=== PATIENT | male | born 1955 | race Two or more races ===

== ENCOUNTER 2016-07-07 18:55 | Inpatient (IN) | payer MEDICAID, OTHER ==
[~2016-07-07] VITALS: Ht 177.8 cm; Wt 62.5 kg
[2016-07-07] MEDS ORDERED: SODIUM CHLORIDE 0.9% 1,000 ML IV ONE ×2 (19:29→21:00)
[2016-07-07] MEDS ORDERED: IPRATROPIUM BROM 0.5 MG/2.5ML INH SOL NEB ONE (19:30)
[2016-07-07] MEDS ORDERED: ALBUTEROL SULF 2.5 MG/0.5ML(0.5%) NEB SOLN NEB ONE (19:30)
[2016-07-07 20:08] LABS: Hematocrit 46.7 % (41.0-53.0); Mean Corpuscular Hemoglobin 30.3 pg (28.0-32.0); Mean Corpuscular Hgb Conc. 32.1 g/dL (32.0-36.0); Mean Corpuscular Volume 94.3 fL (80.0-100.0); Mean Platelet Volume 11.3 fL (7.4-10.4); Platelet Count (auto) 354 10^3/uL (140-450); SUSPECT VIEW TRANSMISSION
[2016-07-07 20:12] LABS: Albumin 2.3 g/dL (3.4-5.0); BUN/Creatinine Ratio 26.1; Calcium 8.8 mg/dL (8.5-10.1); Magnesium 1.9 mg/dL (1.6-2.6); Potassium 3.9 mmol/L (3.5-5.1)
[2016-07-07 20:14] LABS: Bilirubin, Total 0.7 mg/dL (0.2-1.0); Metamyelocytes % 0; Myelocytes % 0; Promyelocytes % 0; Reactive Lymphocytes 0; Total Protein 7.4 g/dL (6.4-8.2)
[2016-07-07] MEDS ORDERED: AZITHROMYCIN 250 MG TAB PO ONE (20:30)
[2016-07-07] MEDS ORDERED: cefTRIAXone 1GM/50ML D5W 50 ML IV ONE (20:30)
[2016-07-07 20:35] LABS: Urine Bilirubin Negative (Negative); Urine Blood 2+ /uL (Negative); Urine Color Yellow (Yellow); Urine Glucose 4+ mg/dL (Normal); Urine Granular Cast FEW /lpf (0); Urine Ketone 4+ (Negative); Urine Mucus FEW (None Seen); Urine Nitrite Negative (Negative); Urine RBC 4 /hpf (0 - 3); Urine Urobilinogen Normal (Negative)
[2016-07-07] MEDS ORDERED: PANTOPRAZOLE SODIUM 40 MG/10 ML VIAL IV ONE (20:45)
[2016-07-07] MEDS ORDERED: methylPREDNISolone SOD SUCC 125 MG/2 ML VL IV ONE (20:45)
[2016-07-07] MEDS ORDERED: DEXTROSE (50%) 50ML SYRG IV PRN (21:00)
[2016-07-07] MEDS ORDERED: MORPHINE SULF INJ 2 MG/ML SYRINGE 1ML IV PRN (21:00)
[2016-07-07] MEDS ORDERED: NITROGLYCERIN 0.4 MG SL TAB SL PRN (21:00)
[2016-07-07] MEDS ORDERED: InsuLIN REG 1unit/0.01ml Soln (100units/ml) IV ONE (21:00)
[2016-07-07] MEDS ORDERED: LACTULOSE 20Gm/30ML SOLN PO PRN (21:00)
[2016-07-07 21:27] LABS: Lactic Acid 2.7 mmol/L (0.4-2.0)
[2016-07-07 21:36] LABS: REFLEX LACTIC ACID YES OR NO YES
[2016-07-07] MEDS: ENOXAPARIN SOD 30 MG/0.3 ML SYRINGE SC SCH (21:52)
[2016-07-07] MEDS: InsuLIN REG 1unit/0.01ml Soln (100units/ml) SC SCH (22:00)
[2016-07-07] MEDS: SODIUM CHLORIDE 0.9% 1,000 ML IV SCH (22:00)
[2016-07-07] MEDS: ACCU-CHEK COMFORT CURVE STRIP VI SCH (22:00)
[2016-07-07] MEDS: ALBUTEROL SULF 2.5 MG/0.5ML(0.5%) NEB SOLN NEB SCH (22:18)
[2016-07-07] MEDS: IPRATROPIUM BROM 0.5 MG/2.5ML INH SOL NEB SCH (22:18)
[2016-07-07 22:41] VITALS: BP 155/94
[2016-07-07 23:15] LABS: B-Type Natriuretic Peptide 53.66 pg/mL (0-100)
[2016-07-07 23:16] LABS: Platelet Estimate Adequate
[2016-07-07 23:17] LABS: Anisocytosis Slight
[2016-07-07 23:21] LABS: Lactic Acid 2.4 mmol/L (0.4-2.0)
[2016-07-07 23:22] LABS: Temperature: 23.8 C (20.0-25.0)
[2016-07-07 23:22] LABS: REFLEX LACTIC ACID YES OR NO NO
[2016-07-08] VITALS (7 sets, daily range): BP systolic 90–144; BP diastolic 58–93
[2016-07-08] MEDS ORDERED: SODIUM CHLORIDE 0.9% 1,000 ML IV ONE ×2 (00:30→05:12)
[2016-07-08] MEDS ORDERED: IPRATROPIUM BROM 0.5 MG/2.5ML INH SOL NEB ONE (00:30)
[2016-07-08] MEDS ORDERED: ALBUTEROL SULF 2.5 MG/0.5ML(0.5%) NEB SOLN NEB ONE (00:30)
[2016-07-08] MEDS: ACCU-CHEK COMFORT CURVE STRIP VI SCH ×4 (01:56→18:30)
[2016-07-08] MEDS: InsuLIN REG 1unit/0.01ml Soln (100units/ml) SC SCH ×4 (02:05→18:29)
[2016-07-08] MEDS: ALBUTEROL SULF 2.5 MG/0.5ML(0.5%) NEB SOLN NEB SCH ×6 (02:29→22:02)
[2016-07-08] MEDS: IPRATROPIUM BROM 0.5 MG/2.5ML INH SOL NEB SCH ×6 (02:29→22:02)
[2016-07-08 03:59] LABS: Hematocrit 42.6 % (41.0-53.0); Mean Corpuscular Hemoglobin 30.9 pg (28.0-32.0); Mean Corpuscular Hgb Conc. 32.9 g/dL (32.0-36.0); Mean Platelet Volume 10.3 fL (7.4-10.4); Platelet Count (auto) 287 10^3/uL (140-450); Red Cell Distribution Width 14.2 % (11.6-16.0); SUSPECT VIEW TRANSMISSION; White Blood Cell 17.6 10^3/uL (4.4-10.8)
[2016-07-08 04:14] LABS: Promyelocytes % 0; Reactive Lymphocytes 0
[2016-07-08 04:22] LABS: BUN/Creatinine Ratio 28.3; Bilirubin, Total 0.4 mg/dL (0.2-1.0); Calcium 8.1 mg/dL (8.5-10.1); Potassium 3.5 mmol/L (3.5-5.1); Total Protein 6.9 g/dL (6.4-8.2)
[2016-07-08 05:02] LABS: Large Platelets FEW; Metamyelocytes % 3; Myelocytes % 1; Platelet Estimate Adequa; RBC Morphology Normal
[2016-07-08] MEDS: cefTRIAXone 1GM/50ML D5W 50 ML IV SCH (09:01)
[2016-07-08] MEDS: methylPREDNISolone SOD SUCC 125 MG/2 ML VL IV SCH (10:35)
[2016-07-08] MEDS: ENOXAPARIN SOD 30 MG/0.3 ML SYRINGE SC SCH (10:36)
[2016-07-08] MEDS: SODIUM CHLORIDE 0.9% 1,000 ML IV SCH ×2 (10:36→23:28)
[2016-07-08] MEDS: AZITHROMYCIN 500MG/D5W 250ML 250 ML IV SCH (10:36)
[2016-07-08] MEDS: PANTOPRAZOLE SODIUM 40 MG/10 ML VIAL IV SCH (10:36)
[2016-07-08] MEDS ORDERED: DEXTROSE (50%) 50ML SYRG IV PRN ×2 (12:45→18:15)
[2016-07-08] MEDS ORDERED: ETOMIDATE (2MG/ML) 20ML VIAL IV ONE ×2 (14:15→14:30)
[2016-07-08] MEDS ORDERED: SUCCINYLCHOLINE CHLORIDE 20 MG/ML 10ML VIAL IV ONE ×2 (14:15→14:30)
[2016-07-08] MEDS ORDERED: MIDAZOLAM DRIP 100 mg/100mL NS 100 ML IV ONE (14:22)
[2016-07-08] MEDS ORDERED: MIDAZOLAM HCL 5 MG/ML-1ML VIAL IV PRN (14:30)
[2016-07-08] MEDS: MIDAZOLAM DRIP 100 mg/100mL NS 100 ML IV SCH ×2 (14:42→20:30)
[2016-07-08] MEDS ORDERED: MIDAZOLAM HCL 1MG/1ML-2 ML VIAL ONE (14:48)
[2016-07-08] MEDS ORDERED: PROPOFOL 100 ML IV SCH (15:12)
[2016-07-08] MEDS ORDERED: NOREPINEPHRINE BITARTRATE 250 ML IV ONE (15:32)
[2016-07-08] MEDS ORDERED: SODIUM BICARBONATE 8.4 % INJ 50ML VIAL IV ONE (15:45)
[2016-07-08] MEDS: NOREPINEPHRINE BITARTRATE 250 ML IV SCH (15:48)
[2016-07-08] MEDS ORDERED: ACCU-CHEK COMFORT CURVE STRIP VI SCH (17:00)
[2016-07-08] MEDS ORDERED: InsuLIN REG 1unit/0.01ml Soln (100units/ml) SC SCH ×2 (17:00→22:00)
[2016-07-09] VITALS (80 sets, daily range): BP systolic 89–119; BP diastolic 50–73
[2016-07-09] MEDS: InsuLIN REG 1unit/0.01ml Soln (100units/ml) SC SCH
[2016-07-09] MEDS: ACCU-CHEK COMFORT CURVE STRIP VI SCH ×18 (02:00→23:59)
[2016-07-09] MEDS: ALBUTEROL SULF 2.5 MG/0.5ML(0.5%) NEB SOLN NEB SCH ×6 (02:03→22:09)
[2016-07-09] MEDS: IPRATROPIUM BROM 0.5 MG/2.5ML INH SOL NEB SCH ×6 (02:03→22:09)
[2016-07-09] MEDS ORDERED: DEXTROSE (50%) 50ML SYRG IV PRN ×2 (03:45→05:45)
[2016-07-09 03:51] LABS: Hematocrit 38.3 % (41.0-53.0); Hemoglobin 12.5 g/dL (13.5-17.5); Mean Corpuscular Hemoglobin 30.3 pg (28.0-32.0); Mean Corpuscular Hgb Conc. 32.6 g/dL (32.0-36.0); Mean Corpuscular Volume 93.2 fL (80.0-100.0); Mean Platelet Volume 10.3 fL (7.4-10.4); Platelet Count (auto) 309 10^3/uL (140-450); Red Cell Distribution Width 14.1 % (11.6-16.0); SUSPECT VIEW TRANSMISSION; White Blood Cell 10.7 10^3/uL (4.4-10.8)
[2016-07-09 03:57] LABS: Myelocytes % 0; Promyelocytes % 0; Reactive Lymphocytes 0
[2016-07-09] MEDS ORDERED: InsuLIN REG 1unit/0.01ml Soln (100units/ml) SC SCH (04:00)
[2016-07-09] MEDS ORDERED: ACCU-CHEK COMFORT CURVE STRIP VI SCH (04:00)
[2016-07-09] MEDS: MIDAZOLAM DRIP 100 mg/100mL NS 100 ML IV SCH ×4 (04:08→21:00)
[2016-07-09 04:13] LABS: INR 1.2 (0.9-1.15); Prothrombin Time 12.4 sec (9.37-12.3)
[2016-07-09 04:55] LABS: BUN/Creatinine Ratio 45.8; Calcium 8.3 mg/dL (8.5-10.1); Magnesium 2.3 mg/dL (1.6-2.6); Potassium 3.3 mmol/L (3.5-5.1)
[2016-07-09 04:56] LABS: Metamyelocytes % 2
[2016-07-09 04:57] LABS: Platelet Estimate Adequate; RBC Morphology Normal
[2016-07-09] MEDS: InsuLIN R (HUMAN) 100 UNITS in SODIUM CHL 0.9% 99 ML IV SCH (06:05)
[2016-07-09] MEDS: methylPREDNISolone SOD SUCC 125 MG/2 ML VL IV SCH (10:14)
[2016-07-09] MEDS: PANTOPRAZOLE SODIUM 40 MG/10 ML VIAL IV SCH (10:14)
[2016-07-09] MEDS: ENOXAPARIN SOD 40 MG/0.4 ML SYRINGE SC SCH (10:14)
[2016-07-09] MEDS: cefTRIAXone 1GM/50ML D5W 50 ML IV SCH (10:15)
[2016-07-09] MEDS: AZITHROMYCIN 500MG/D5W 250ML 250 ML IV SCH (10:15)
[2016-07-09] MEDS ORDERED: AZIT250T5 PO (10:35)
[2016-07-09] MEDS ORDERED: METF-314 PO (10:35)
[2016-07-09] MEDS: SOD CHL 0.45% 1,000 ML IV SCH (14:10)
[2016-07-09] MEDS ORDERED: PROPOFOL 100 ML IV PRN (15:12)
[2016-07-09] MEDS: fentaNYL Drip 2500mCg/250mlNS 250 ML IV SCH (15:15)
[2016-07-09] MEDS: NOREPINEPHRINE BITARTRATE 250 ML IV SCH (15:21)
[2016-07-10] VITALS (106 sets, daily range): BP systolic 88–147; BP diastolic 39–74
[2016-07-10] MEDS: InsuLIN R (HUMAN) 100 UNITS in SODIUM CHL 0.9% 99 ML IV SCH ×2 (01:00→03:00)
[2016-07-10] MEDS: ACCU-CHEK COMFORT CURVE STRIP VI SCH ×24 (01:04→23:29)
[2016-07-10] MEDS: SOD CHL 0.45% 1,000 ML IV SCH ×3 (01:05→14:25)
[2016-07-10] MEDS: ALBUTEROL SULF 2.5 MG/0.5ML(0.5%) NEB SOLN NEB SCH ×6 (02:16→22:01)
[2016-07-10] MEDS: IPRATROPIUM BROM 0.5 MG/2.5ML INH SOL NEB SCH ×6 (02:16→22:01)
[2016-07-10] MEDS ORDERED: DEXTROSE (50%) 50ML SYRG IV PRN (03:00)
[2016-07-10 04:40] LABS: BUN/Creatinine Ratio 51.7; Potassium 3.1 mmol/L (3.5-5.1)
[2016-07-10 04:53] LABS: Basophils # (auto) 0 uL; Eosinophils # (auto) 0 uL; Hematocrit 36.1 % (41.0-53.0); Lymphocytes # (auto) 0.5 uL; Mean Corpuscular Hemoglobin 30.5 pg (28.0-32.0); Mean Corpuscular Hgb Conc. 33.3 g/dL (32.0-36.0); Mean Corpuscular Volume 91.7 fL (80.0-100.0); Mean Platelet Volume 10.5 fL (7.4-10.4); Monocytes # (auto) 0.3 uL; Monocytes % (auto) 3.3 % (0.0-12.0); Neutrophils # (auto) 8.3 uL; Neutrophils % (auto) 91.7 % (37.0-80.0); Platelet Count (auto) 221 10^3/uL (140-450); Red Cell Distribution Width 14.4 % (11.6-16.0); White Blood Cell 9.1 10^3/uL (4.4-10.8)
[2016-07-10] MEDS ORDERED: POTASSIUM CHL 10% (20 MEQ/15ML) ORAL SOLN NG ONE (05:30)
[2016-07-10] MEDS: cefTRIAXone 1GM/50ML D5W 50 ML IV SCH (08:46)
[2016-07-10] MEDS: AZITHROMYCIN 500MG/D5W 250ML 250 ML IV SCH (10:04)
[2016-07-10] MEDS: PANTOPRAZOLE SODIUM 40 MG/10 ML VIAL IV SCH (10:04)
[2016-07-10] MEDS: ENOXAPARIN SOD 40 MG/0.4 ML SYRINGE SC SCH (10:04)
[2016-07-10] MEDS: methylPREDNISolone SOD SUCC 125 MG/2 ML VL IV SCH (10:04)
[2016-07-10] MEDS: fentaNYL Drip 2500mCg/250mlNS 250 ML IV SCH (15:03)
[2016-07-10] MEDS: NOREPINEPHRINE BITARTRATE 250 ML IV SCH (15:45)
[2016-07-10] MEDS ORDERED: PROPOFOL 100 ML IV SCH (16:32)
[2016-07-10] MEDS: MIDAZOLAM DRIP 100 mg/100mL NS 100 ML IV SCH (20:34)
[2016-07-11] VITALS (74 sets, daily range): BP systolic 92–154; BP diastolic 50–95
[2016-07-11] MEDS: ACCU-CHEK COMFORT CURVE STRIP VI SCH ×13 (01:13→17:50)
[2016-07-11] MEDS: ALBUTEROL SULF 2.5 MG/0.5ML(0.5%) NEB SOLN NEB SCH ×6 (02:20→23:35)
[2016-07-11] MEDS: IPRATROPIUM BROM 0.5 MG/2.5ML INH SOL NEB SCH ×6 (02:20→23:35)
[2016-07-11] MEDS: InsuLIN R (HUMAN) 100 UNITS in SODIUM CHL 0.9% 99 ML IV SCH (03:29)
[2016-07-11 03:52] LABS: Hematocrit 36.6 % (41.0-53.0); Hemoglobin 12.1 g/dL (13.5-17.5); Mean Corpuscular Hemoglobin 30.6 pg (28.0-32.0); Mean Corpuscular Hgb Conc. 32.9 g/dL (32.0-36.0); Mean Corpuscular Volume 92.9 fL (80.0-100.0); Mean Platelet Volume 10.9 fL (7.4-10.4); Platelet Count (auto) 188 10^3/uL (140-450); Red Cell Distribution Width 14.1 % (11.6-16.0); SUSPECT VIEW TRANSMISSION; White Blood Cell 11.8 10^3/uL (4.4-10.8)
[2016-07-11 04:17] LABS: Albumin 1.6 g/dL (3.4-5.0); BUN/Creatinine Ratio 67.2; Bilirubin, Total 0.4 mg/dL (0.2-1.0); Calcium 7.8 mg/dL (8.5-10.1); Magnesium 2.6 mg/dL (1.6-2.6); Total Protein 5.8 g/dL (6.4-8.2)
[2016-07-11 04:48] LABS: Promyelocytes % 0; Reactive Lymphocytes 0
[2016-07-11 05:04] LABS: INR 1.21 (0.9-1.15); Prothrombin Time 12.5 sec (9.37-12.3)
[2016-07-11] MEDS: SOD CHL 0.45% 1,000 ML IV SCH (05:18)
[2016-07-11 06:16] LABS: Hypersegmented Neutrophils Present; Metamyelocytes % 1; Myelocytes % 1; Platelet Estimate Adequate; RBC Morphology Normal
[2016-07-11] MEDS: cefTRIAXone 1GM/50ML D5W 50 ML IV SCH (09:25)
[2016-07-11] MEDS ORDERED: methylPREDNISolone SOD SUCC 40 MG/ML VL IV SCH (10:00)
[2016-07-11] MEDS: ENOXAPARIN SOD 40 MG/0.4 ML SYRINGE SC SCH (10:32)
[2016-07-11] MEDS: AZITHROMYCIN 500MG/D5W 250ML 250 ML IV SCH (10:32)
[2016-07-11] MEDS: PANTOPRAZOLE SODIUM 40 MG/10 ML VIAL IV SCH (10:32)
[2016-07-11] MEDS ORDERED: INSULIN DETEMIR(LEVEMIR) 1unit/0.01ml Soln (100units/ml) SC ONE (10:45)
[2016-07-11] MEDS ORDERED: DEXTROSE (50%) 50ML SYRG IV PRN (10:45)
[2016-07-11] MEDS: PRO-STAT 64 30ML PO SCH (12:00)
[2016-07-11] MEDS: Boost Glucose Control 8 Ounces PO SCH ×2 (12:00→17:55)
[2016-07-11] MEDS: InsuLIN REG 1unit/0.01ml Soln (100units/ml) SC SCH ×2 (12:49→17:54)
[2016-07-11] MEDS ORDERED: FREE WATER GT SCH (14:00)
[2016-07-11] MEDS: INSULIN 70/30 1unit/0.01ml Susp (100units/ml) SC SCH (17:55)
[2016-07-12] MEDS: ACCU-CHEK COMFORT CURVE STRIP VI SCH ×4 (00:14→17:48)
[2016-07-12] MEDS: ALBUTEROL SULF 2.5 MG/0.5ML(0.5%) NEB SOLN NEB SCH ×6 (02:50→22:18)
[2016-07-12] MEDS: IPRATROPIUM BROM 0.5 MG/2.5ML INH SOL NEB SCH ×6 (02:50→22:18)
[2016-07-12 04:57] VITALS: BP 130/75
[2016-07-12] MEDS: InsuLIN REG 1unit/0.01ml Soln (100units/ml) SC SCH ×4 (06:00→17:59)
[2016-07-12 06:08] LABS: Basophils # (auto) 0 uL; Basophils % (auto) 0.2 % (0.0-2.0); Eosinophils # (auto) 0 uL; Eosinophils % (auto) 0.3 % (0.0-7.0); Hematocrit 39.7 % (41.0-53.0); Hemoglobin 13.1 g/dL (13.5-17.5); Lymphocytes # (auto) 1.6 uL; Lymphocytes % (auto) 12.1 % (10.0-50.0); Mean Corpuscular Hemoglobin 30.5 pg (28.0-32.0); Mean Corpuscular Hgb Conc. 33.1 g/dL (32.0-36.0); Mean Corpuscular Volume 92.1 fL (80.0-100.0); Mean Platelet Volume 11.1 fL (7.4-10.4); Monocytes # (auto) 0.4 uL; Monocytes % (auto) 2.8 % (0.0-12.0); Neutrophils % (auto) 84.6 % (37.0-80.0); Platelet Count (auto) 186 10^3/uL (140-450); Red Cell Distribution Width 13.7 % (11.6-16.0)
[2016-07-12] MEDS: SOD CHL 0.45% 1,000 ML IV SCH (06:29)
[2016-07-12 06:49] LABS: Albumin 1.8 g/dL (3.4-5.0); BUN/Creatinine Ratio 64.1; Bilirubin, Total 0.6 mg/dL (0.2-1.0); Calcium 7.5 mg/dL (8.5-10.1); Potassium 3.1 mmol/L (3.5-5.1); Total Protein 5.9 g/dL (6.4-8.2)
[2016-07-12] MEDS: Boost Glucose Control 8 Ounces PO SCH ×3 (08:00→17:47)
[2016-07-12] MEDS: PRO-STAT 64 30ML PO SCH ×3 (08:00→17:48)
[2016-07-12] MEDS: INSULIN 70/30 1unit/0.01ml Susp (100units/ml) SC SCH ×2 (08:00→18:00)
[2016-07-12 09:00] VITALS: BP 130/75
[2016-07-12] MEDS ORDERED: POTASSIUM PHOSPHATE 44 MEQ in SODIUM CHL 0.9% 250 ML IV ONE (09:00)
[2016-07-12] MEDS: cefTRIAXone 1GM/50ML D5W 50 ML IV SCH (09:45)
[2016-07-12] MEDS: ENOXAPARIN SOD 40 MG/0.4 ML SYRINGE SC SCH (09:51)
[2016-07-12] MEDS: AZITHROMYCIN 500MG/D5W 250ML 250 ML IV SCH (09:51)
[2016-07-12 13:00] VITALS: BP 124/61
[2016-07-12] MEDS ORDERED: MIDAZOLAM HCL 1MG/1ML-2 ML VIAL ONE (13:41)
[2016-07-12] MEDS ORDERED: fentaNYL CITRATE 100 MCG/2 ML VL ONE (13:41)
[2016-07-12] MEDS: ACETYLCYSTEINE 10 %(100MG/ML) SOL 4ML NEB SCH ×2 (13:55→19:30)
[2016-07-12 17:00] VITALS: BP 127/77
[2016-07-12 21:37] VITALS: BP 140/80
[2016-07-12] MEDS: CLINDAMYCIN 600MG IV 50 ML IV SCH (21:52)
[2016-07-13] MEDS: ACCU-CHEK COMFORT CURVE STRIP VI SCH ×4 (00:30→18:03)
[2016-07-13] MEDS: InsuLIN REG 1unit/0.01ml Soln (100units/ml) SC SCH ×4 (00:38→18:00)
[2016-07-13] MEDS: ACETYLCYSTEINE 10 %(100MG/ML) SOL 4ML NEB SCH ×4 (01:02→19:25)
[2016-07-13] MEDS: ALBUTEROL SULF 2.5 MG/0.5ML(0.5%) NEB SOLN NEB SCH ×4 (01:02→19:24)
[2016-07-13] MEDS: IPRATROPIUM BROM 0.5 MG/2.5ML INH SOL NEB SCH ×4 (01:02→19:24)
[2016-07-13] MEDS: CLINDAMYCIN 600MG IV 50 ML IV SCH ×3 (06:03→22:26)
[2016-07-13 06:14] LABS: Basophils # (auto) 0 uL; Eosinophils # (auto) 0.1 uL; Eosinophils % (auto) 0.8 % (0.0-7.0); Hematocrit 41.4 % (41.0-53.0); Hemoglobin 13.9 g/dL (13.5-17.5); Lymphocytes # (auto) 1.2 uL; Lymphocytes % (auto) 10.1 % (10.0-50.0); Mean Corpuscular Hemoglobin 30.6 pg (28.0-32.0); Mean Corpuscular Hgb Conc. 33.6 g/dL (32.0-36.0); Mean Corpuscular Volume 91.1 fL (80.0-100.0); Mean Platelet Volume 11.4 fL (7.4-10.4); Monocytes # (auto) 0 uL; Monocytes % (auto) 0.3 % (0.0-12.0); Neutrophils # (auto) 10.2 uL; Neutrophils % (auto) 88.8 % (37.0-80.0); Platelet Count (auto) 183 10^3/uL (140-450); Red Cell Distribution Width 13.9 % (11.6-16.0); White Blood Cell 11.5 10^3/uL (4.4-10.8)
[2016-07-13 06:31] LABS: Calcium 7.4 mg/dL (8.5-10.1); Potassium 3.2 mmol/L (3.5-5.1)
[2016-07-13] MEDS: Boost Glucose Control 8 Ounces PO SCH ×3 (07:54→18:03)
[2016-07-13] MEDS: PRO-STAT 64 30ML PO SCH ×3 (07:54→18:03)
[2016-07-13] MEDS: cefTRIAXone 1GM/50ML D5W 50 ML IV SCH (08:03)
[2016-07-13] MEDS: INSULIN 70/30 1unit/0.01ml Susp (100units/ml) SC SCH ×2 (08:07→18:00)
[2016-07-13] MEDS ORDERED: POTASSIUM CHL 20 Meq TABLET PO ONE (08:30)
[2016-07-13 09:00] VITALS: BP 128/77
[2016-07-13] MEDS ORDERED: fentaNYL CITRATE 100 MCG/2 ML VL ONE (09:16)
[2016-07-13] MEDS ORDERED: MIDAZOLAM HCL 1MG/1ML-2 ML VIAL ONE (09:16)
[2016-07-13] MEDS ORDERED: FLUMAZENIL 0.1 MG/ML INJ 10ML MDV IV ONE (09:17)
[2016-07-13] MEDS ORDERED: NALOXONE HCL 0.4 MG/ML VIAL ONE (09:17)
[2016-07-13] MEDS ORDERED: LIDOCAINE 2%HCL (LOCAL ANESTH.) INJ 20ML MDV ONE (09:20)
[2016-07-13] MEDS: ENOXAPARIN SOD 40 MG/0.4 ML SYRINGE SC SCH (10:40)
[2016-07-13] MEDS: AZITHROMYCIN 500MG/D5W 250ML 250 ML IV SCH (10:40)
[2016-07-13 13:00] VITALS: BP 141/75
[2016-07-13 14:40] LABS: Body Fluid Polymorphonuclear 63 %
[2016-07-13 16:47] VITALS: BP 122/75
[2016-07-13 22:01] VITALS: BP 104/68
[2016-07-14] MEDS: ACCU-CHEK COMFORT CURVE STRIP VI SCH ×5 (00:14→23:16)
[2016-07-14] MEDS: InsuLIN REG 1unit/0.01ml Soln (100units/ml) SC SCH ×5 (00:16→23:20)
[2016-07-14] MEDS: ACETYLCYSTEINE 10 %(100MG/ML) SOL 4ML NEB SCH ×4 (01:05→19:38)
[2016-07-14] MEDS: IPRATROPIUM BROM 0.5 MG/2.5ML INH SOL NEB SCH ×4 (01:05→19:38)
[2016-07-14] MEDS: ALBUTEROL SULF 2.5 MG/0.5ML(0.5%) NEB SOLN NEB SCH ×4 (01:05→19:38)
[2016-07-14 05:27] VITALS: BP 124/73
[2016-07-14] MEDS: CLINDAMYCIN 600MG IV 50 ML IV SCH ×3 (06:10→22:19)
[2016-07-14 06:30] LABS: Albumin 1.8 g/dL (3.4-5.0); BUN/Creatinine Ratio 38.2; Bilirubin, Total 0.8 mg/dL (0.2-1.0); Calcium 7.5 mg/dL (8.5-10.1); Potassium 3.5 mmol/L (3.5-5.1); Total Protein 6.1 g/dL (6.4-8.2)
[2016-07-14] MEDS: INSULIN 70/30 1unit/0.01ml Susp (100units/ml) SC SCH ×3 (08:00→18:22)
[2016-07-14] MEDS ORDERED: IOHEXOL 350 MG/ML 100ML IJ ONE ×3 (08:05→13:46)
[2016-07-14] MEDS: PRO-STAT 64 30ML PO SCH ×3 (08:20→17:58)
[2016-07-14] MEDS: Boost Glucose Control 8 Ounces PO SCH ×3 (08:20→17:58)
[2016-07-14] MEDS: cefTRIAXone 1GM/50ML D5W 50 ML IV SCH (08:21)
[2016-07-14 09:36] VITALS: BP 124/73
[2016-07-14] MEDS: AZITHROMYCIN 500MG/D5W 250ML 250 ML IV SCH (09:36)
[2016-07-14] MEDS: ENOXAPARIN SOD 40 MG/0.4 ML SYRINGE SC SCH (09:36)
[2016-07-14] MEDS ORDERED: guaiFENesin-DEXTROMETHORPHAN 5ML SYR PO PRN (12:45)
[2016-07-14] MEDS ORDERED: POTASSIUM CHL 20 Meq TABLET PO ONE (12:45)
[2016-07-14] MEDS ORDERED: FUROSEMIDE 20 MG/2 ML VIAL IV ONE (12:45)
[2016-07-14 15:25] VITALS: BP 110/68
[2016-07-14 17:08] VITALS: BP 103/64
[2016-07-14 20:04] VITALS: BP 103/64
[2016-07-14 22:00] VITALS: BP 111/64
[2016-07-15] MEDS: ALBUTEROL SULF 2.5 MG/0.5ML(0.5%) NEB SOLN NEB SCH ×4 (00:25→19:34)
[2016-07-15] MEDS: IPRATROPIUM BROM 0.5 MG/2.5ML INH SOL NEB SCH ×4 (00:25→19:34)
[2016-07-15] MEDS: ACETYLCYSTEINE 10 %(100MG/ML) SOL 4ML NEB SCH ×4 (00:25→19:34)
[2016-07-15 05:00] VITALS: BP 113/61
[2016-07-15] MEDS: CLINDAMYCIN 600MG IV 50 ML IV SCH ×3 (05:27→21:41)
[2016-07-15] MEDS: ACCU-CHEK COMFORT CURVE STRIP VI SCH ×4 (05:28→23:59)
[2016-07-15] MEDS: InsuLIN REG 1unit/0.01ml Soln (100units/ml) SC SCH ×3 (06:38→17:44)
[2016-07-15] MEDS: INSULIN 70/30 1unit/0.01ml Susp (100units/ml) SC SCH ×2 (08:00→17:43)
[2016-07-15] MEDS: Boost Glucose Control 8 Ounces PO SCH ×3 (08:27→17:44)
[2016-07-15] MEDS: PRO-STAT 64 30ML PO SCH ×3 (08:27→17:44)
[2016-07-15] MEDS: cefTRIAXone 1GM/50ML D5W 50 ML IV SCH (08:37)
[2016-07-15 09:05] VITALS: BP 100/63
[2016-07-15] MEDS: AZITHROMYCIN 500MG/D5W 250ML 250 ML IV SCH (09:37)
[2016-07-15] MEDS: ENOXAPARIN SOD 40 MG/0.4 ML SYRINGE SC SCH (09:38)
[2016-07-15 11:27] VITALS: BP 100/58
[2016-07-15] MEDS ORDERED: MORPHINE SULF INJ 2 MG/ML SYRINGE 1ML IV PRN (14:15)
[2016-07-15 15:59] VITALS: BP 107/62
[2016-07-15 22:00] VITALS: BP 101/58
[2016-07-16] MEDS: InsuLIN REG 1unit/0.01ml Soln (100units/ml) SC SCH ×4 (00:05→17:39)
[2016-07-16] MEDS: IPRATROPIUM BROM 0.5 MG/2.5ML INH SOL NEB SCH ×3 (00:30→20:05)
[2016-07-16] MEDS: ACETYLCYSTEINE 10 %(100MG/ML) SOL 4ML NEB SCH ×3 (00:30→20:05)
[2016-07-16] MEDS: ALBUTEROL SULF 2.5 MG/0.5ML(0.5%) NEB SOLN NEB SCH ×3 (00:30→20:05)
[2016-07-16 05:00] VITALS: BP 96/59
[2016-07-16] MEDS: CLINDAMYCIN 600MG IV 50 ML IV SCH ×3 (06:00→23:20)
[2016-07-16] MEDS: ACCU-CHEK COMFORT CURVE STRIP VI SCH ×4 (06:15→23:20)
[2016-07-16] MEDS: PRO-STAT 64 30ML PO SCH ×3 (08:00→18:00)
[2016-07-16] MEDS: Boost Glucose Control 8 Ounces PO SCH ×3 (08:00→18:00)
[2016-07-16] MEDS: INSULIN 70/30 1unit/0.01ml Susp (100units/ml) SC SCH ×2 (08:24→18:00)
[2016-07-16 09:00] VITALS: BP 103/69
[2016-07-16] MEDS: cefTRIAXone 1GM/50ML D5W 50 ML IV SCH (09:56)
[2016-07-16] MEDS: ENOXAPARIN SOD 40 MG/0.4 ML SYRINGE SC SCH (09:56)
[2016-07-16] MEDS: AZITHROMYCIN 500MG/D5W 250ML 250 ML IV SCH (09:56)
[2016-07-16] MEDS ORDERED: IOHEXOL 300 MG/ML 75ml BOTTLE IJ ONE (12:48)
[2016-07-16 13:00] VITALS: BP 103/68
[2016-07-16 17:00] VITALS: BP 123/63
[2016-07-16 22:00] VITALS: BP 103/55
[2016-07-17 05:00] VITALS: BP 100/58
[2016-07-17] MEDS: CLINDAMYCIN 600MG IV 50 ML IV SCH ×3 (05:47→21:51)
[2016-07-17] MEDS: InsuLIN REG 1unit/0.01ml Soln (100units/ml) SC SCH ×4 (06:00→17:50)
[2016-07-17] MEDS: ACCU-CHEK COMFORT CURVE STRIP VI SCH ×3 (06:09→17:50)
[2016-07-17] MEDS: ALBUTEROL SULF 2.5 MG/0.5ML(0.5%) NEB SOLN NEB SCH ×4 (06:11→19:24)
[2016-07-17] MEDS: IPRATROPIUM BROM 0.5 MG/2.5ML INH SOL NEB SCH ×4 (06:12→19:24)
[2016-07-17] MEDS: ACETYLCYSTEINE 10 %(100MG/ML) SOL 4ML NEB SCH ×4 (06:13→19:25)
[2016-07-17] MEDS: Boost Glucose Control 8 Ounces PO SCH ×2 (08:10→12:00)
[2016-07-17] MEDS: INSULIN 70/30 1unit/0.01ml Susp (100units/ml) SC SCH (08:10)
[2016-07-17] MEDS: PRO-STAT 64 30ML PO SCH ×2 (08:10→12:00)
[2016-07-17] MEDS: cefTRIAXone 1GM/50ML D5W 50 ML IV SCH (09:01)
[2016-07-17 09:08] VITALS: BP 100/58
[2016-07-17] MEDS: ENOXAPARIN SOD 40 MG/0.4 ML SYRINGE SC SCH (10:00)
[2016-07-17] MEDS: AZITHROMYCIN 500MG/D5W 250ML 250 ML IV SCH (10:54)
[2016-07-17 13:00] VITALS: BP 99/67
[2016-07-17 13:08] LABS: Basophils # (auto) 0 uL; Basophils % (auto) 0.1 % (0.0-2.0); Hemoglobin 13.9 g/dL (13.5-17.5); Mean Corpuscular Volume 90.7 fL (80.0-100.0); White Blood Cell 15.7 10^3/uL (4.4-10.8)
[2016-07-17 13:10] LABS: Eosinophils # (auto) 0.2 uL; Eosinophils % (auto) 1.2 % (0.0-7.0); Hematocrit 41.3 % (41.0-53.0); Lymphocytes # (auto) 1.3 uL; Lymphocytes % (auto) 8.5 % (10.0-50.0); Mean Corpuscular Hemoglobin 30.6 pg (28.0-32.0); Mean Corpuscular Hgb Conc. 33.7 g/dL (32.0-36.0); Mean Platelet Volume 9.7 fL (7.4-10.4); Monocytes % (auto) 6.5 % (0.0-12.0); Neutrophils # (auto) 13.2 uL; Neutrophils % (auto) 83.7 % (37.0-80.0); Platelet Count (auto) 348 10^3/uL (140-450); Red Cell Distribution Width 13.7 % (11.6-16.0)
[2016-07-17 13:29] LABS: Albumin 1.7 g/dL (3.4-5.0); BUN/Creatinine Ratio 26.7; Bilirubin, Total 0.3 mg/dL (0.2-1.0); Calcium 7.9 mg/dL (8.5-10.1); Total Protein 7.2 g/dL (6.4-8.2)
[2016-07-17 14:04] LABS: INR 1.17 (0.9-1.15)
[2016-07-17 17:00] VITALS: BP 108/70
[2016-07-17] MEDS ORDERED: AZITHROMYCIN 500MG/D5W 250ML 250 ML IV SCH (20:00)
[2016-07-17 22:00] VITALS: BP 107/61
[2016-07-17 23:24] VITALS: BP 108/70
[2016-07-18] VITALS (25 sets, daily range): BP systolic 79–114; BP diastolic 38–79
[2016-07-18] MEDS: ACCU-CHEK COMFORT CURVE STRIP VI SCH ×3 (00:18→17:36)
[2016-07-18] MEDS: InsuLIN REG 1unit/0.01ml Soln (100units/ml) SC SCH ×3 (00:19→18:44)
[2016-07-18] MEDS: ACETYLCYSTEINE 10 %(100MG/ML) SOL 4ML NEB SCH ×4 (00:50→18:24)
[2016-07-18] MEDS: ALBUTEROL SULF 2.5 MG/0.5ML(0.5%) NEB SOLN NEB SCH ×4 (00:50→18:24)
[2016-07-18] MEDS: IPRATROPIUM BROM 0.5 MG/2.5ML INH SOL NEB SCH ×4 (00:50→18:24)
[2016-07-18] MEDS: CLINDAMYCIN 600MG IV 50 ML IV SCH (05:45)
[2016-07-18] MEDS ORDERED: PHENYLEPHRINE HCL 10 MG/ML VL IV ONE (10:22)
[2016-07-18] MEDS ORDERED: ceFAZolin 1GM VL IV ONE (10:22)
[2016-07-18] MEDS ORDERED: MIDAZOLAM HCL 1MG/1ML-2 ML VIAL ONE ×2 (10:44→10:59)
[2016-07-18] MEDS ORDERED: MEPERIDINE HCL (50 MG/ML) 1 ML VIAL ONE ×2 (10:44→10:59)
[2016-07-18] MEDS ORDERED: DEXAMETHASONE SOD PHOS 10MG/1ML VIAL INJ ONE (10:45)
[2016-07-18] MEDS ORDERED: PROPOFOL 10 MG/ML 20 ML IV ONE (10:45)
[2016-07-18] MEDS ORDERED: fentaNYL CITRATE 100 MCG/2 ML VL ONE (10:45)
[2016-07-18] MEDS ORDERED: MORPHINE SULF INJ 2 MG/ML SYRINGE 1ML IV PRN ×2 (11:15→13:15)
[2016-07-18] MEDS ORDERED: HYDROmorphone HCL 2 MG/ML VL IV PRN (11:15)
[2016-07-18] MEDS ORDERED: ePHEDrine SULFATE 50 MG/ML AMP IV PRN (11:15)
[2016-07-18] MEDS ORDERED: ONDANSETRON HCL 4 MG/2 ML VIAL IV ONE (11:15)
[2016-07-18] MEDS ORDERED: LABETALOL HCL 5 MG/ML 4ML SYRINGE IV PRN (11:15)
[2016-07-18] MEDS ORDERED: KETOROLAC TROMETH 30 MG/ML 1ML VIAL IV ONE (11:15)
[2016-07-18] MEDS ORDERED: MIDAZOLAM HCL 1MG/1ML-2 ML VIAL IV PRN (11:15)
[2016-07-18] MEDS ORDERED: fentaNYL CITRATE 100 MCG/2 ML VL IV ONE (12:00)
[2016-07-18] MEDS ORDERED: ROCURONIUM 10MG/ML 10ML VIAL IV ONE (12:13)
[2016-07-18] MEDS ORDERED: LACTULOSE 20Gm/30ML SOLN PO PRN (13:15)
[2016-07-18] MEDS ORDERED: guaiFENesin-DEXTROMETHORPHAN 5ML SYR PO PRN (13:15)
[2016-07-18] MEDS ORDERED: NITROGLYCERIN 0.4 MG SL TAB SL PRN (13:15)
[2016-07-18] MEDS ORDERED: DEXTROSE (50%) 50ML SYRG IV PRN (13:15)
[2016-07-18] MEDS ORDERED: MIDAZOLAM DRIP 100 mg/100mL NS 100 ML IV ONE (13:17)
[2016-07-18] MEDS: MIDAZOLAM DRIP 100 mg/100mL NS 100 ML IV SCH (13:30)
[2016-07-18] MEDS ORDERED: CLINDAMYCIN 600MG IV 50 ML IV SCH (14:00)
[2016-07-18 15:39] LABS: Basophils # (auto) 0 uL; Eosinophils # (auto) 0 uL; Eosinophils % (auto) 0.1 % (0.0-7.0); Hematocrit 35.8 % (41.0-53.0); Hemoglobin 11.7 g/dL (13.5-17.5); Lymphocytes # (auto) 0.3 uL; Lymphocytes % (auto) 1.6 % (10.0-50.0); Mean Corpuscular Hemoglobin 30.4 pg (28.0-32.0); Mean Corpuscular Hgb Conc. 32.6 g/dL (32.0-36.0); Mean Corpuscular Volume 93.1 fL (80.0-100.0); Mean Platelet Volume 10.1 fL (7.4-10.4); Monocytes # (auto) 0.3 uL; Monocytes % (auto) 1.5 % (0.0-12.0); Neutrophils # (auto) 16.5 uL; Neutrophils % (auto) 96.8 % (37.0-80.0); Platelet Count (auto) 303 10^3/uL (140-450); Red Cell Distribution Width 14.1 % (11.6-16.0)
[2016-07-18] MEDS ORDERED: VANCOMYCIN PER PHARMACY 0 MG IV SCH (16:30)
[2016-07-18] MEDS ORDERED: SODIUM CHLORIDE 0.9% 500 ML IV ONE (16:30)
[2016-07-18 17:10] LABS: Albumin 1.8 g/dL (3.4-5.0); BUN/Creatinine Ratio 25.9; Calcium 7.5 mg/dL (8.5-10.1); Magnesium 2.1 mg/dL (1.6-2.6); Potassium 5.3 mmol/L (3.5-5.1)
[2016-07-18 17:12] LABS: Bilirubin, Total 0.4 mg/dL (0.2-1.0); Total Protein 6.8 g/dL (6.4-8.2)
[2016-07-18] MEDS: SODIUM CHLORIDE 0.9% 1,000 ML IV SCH (17:32)
[2016-07-18] MEDS: ALBUMIN 25% 100 ML IV SCH ×2 (17:32→18:19)
[2016-07-18] MEDS: PIPERACILLIN-TAZOB 3.375GM 100 ML IV SCH (17:35)
[2016-07-18] MEDS: PRO-STAT 64 30ML PO SCH (17:35)
[2016-07-18] MEDS ORDERED: INSULIN 70/30 1unit/0.01ml Susp (100units/ml) SC SCH (18:00)
[2016-07-18] MEDS ORDERED: Boost Glucose Control 8 Ounces PO SCH (18:00)
[2016-07-18] MEDS: NOREPINEPHRINE BITARTRATE 250 ML IV SCH (18:43)
[2016-07-18] MEDS ORDERED: AZITHROMYCIN 500MG/D5W 250ML 250 ML IV SCH (20:00)
[2016-07-18] MEDS: HYDROmorphone HCL 2 MG/ML VL IV PRN (20:34)
[2016-07-19] VITALS (93 sets, daily range): BP systolic 84–134; BP diastolic 47–76
[2016-07-19] MEDS: ALBUTEROL SULF 2.5 MG/0.5ML(0.5%) NEB SOLN NEB SCH ×4 (00:18→18:19)
[2016-07-19] MEDS: IPRATROPIUM BROM 0.5 MG/2.5ML INH SOL NEB SCH ×4 (00:18→18:19)
[2016-07-19] MEDS: ACETYLCYSTEINE 10 %(100MG/ML) SOL 4ML NEB SCH ×4 (00:18→18:19)
[2016-07-19] MEDS: HYDROmorphone HCL 2 MG/ML VL IV PRN ×3 (00:34→07:24)
[2016-07-19] MEDS: MIDAZOLAM DRIP 100 mg/100mL NS 100 ML IV SCH ×2 (02:11→14:31)
[2016-07-19] MEDS: ACCU-CHEK COMFORT CURVE STRIP VI SCH ×4 (06:13→17:30)
[2016-07-19] MEDS: VANCOMYCIN 1GM/250ML D5W 250 ML IV SCH ×2 (06:18→13:20)
[2016-07-19] MEDS: PIPERACILLIN-TAZOB 3.375GM 100 ML IV SCH ×4 (06:18→17:39)
[2016-07-19] MEDS: InsuLIN REG 1unit/0.01ml Soln (100units/ml) SC SCH ×4 (06:20→17:41)
[2016-07-19] MEDS: SODIUM CHLORIDE 0.9% 1,000 ML IV SCH ×2 (06:20→07:01)
[2016-07-19 06:34] LABS: Basophils # (auto) 0 uL; Basophils % (auto) 0.2 % (0.0-2.0); Eosinophils # (auto) 0.1 uL; Eosinophils % (auto) 0.5 % (0.0-7.0); Hematocrit 33.9 % (41.0-53.0); Lymphocytes # (auto) 1.5 uL; Lymphocytes % (auto) 9.5 % (10.0-50.0); Mean Corpuscular Hemoglobin 30.6 pg (28.0-32.0); Mean Corpuscular Hgb Conc. 32.5 g/dL (32.0-36.0); Mean Corpuscular Volume 94.4 fL (80.0-100.0); Mean Platelet Volume 10.4 fL (7.4-10.4); Monocytes % (auto) 6.5 % (0.0-12.0); Neutrophils % (auto) 83.3 % (37.0-80.0); Platelet Count (auto) 295 10^3/uL (140-450); Red Cell Distribution Width 13.7 % (11.6-16.0); White Blood Cell 15.6 10^3/uL (4.4-10.8)
[2016-07-19 06:52] LABS: Calcium 7.8 mg/dL (8.5-10.1); Potassium 4.8 mmol/L (3.5-5.1)
[2016-07-19 06:54] LABS: BUN/Creatinine Ratio 29.6
[2016-07-19] MEDS: PRO-STAT 64 30ML PO SCH ×3 (08:00→18:00)
[2016-07-19] MEDS ORDERED: cefTRIAXone 1GM/50ML D5W 50 ML IV SCH (09:00)
[2016-07-19] MEDS ORDERED: Diabetisource AC 1 Liter GT SCH (10:00)
[2016-07-19] MEDS: ENOXAPARIN SOD 40 MG/0.4 ML SYRINGE SC SCH (11:07)
[2016-07-19] MEDS: INSULIN 70/30 1unit/0.01ml Susp (100units/ml) SC SCH ×2 (13:22→22:30)
[2016-07-19] MEDS: ACETAMINOPHEN 650 mg PER 20 mL UD GT PRN ×2 (15:35→23:13)
[2016-07-19] MEDS: NOREPINEPHRINE BITARTRATE 250 ML IV SCH (22:50)
[2016-07-20] VITALS (56 sets, daily range): BP systolic 95–134; BP diastolic 43–83
[2016-07-20] MEDS: ACETYLCYSTEINE 10 %(100MG/ML) SOL 4ML NEB SCH ×4 (00:15→18:40)
[2016-07-20] MEDS: IPRATROPIUM BROM 0.5 MG/2.5ML INH SOL NEB SCH ×4 (00:15→18:40)
[2016-07-20] MEDS: ALBUTEROL SULF 2.5 MG/0.5ML(0.5%) NEB SOLN NEB SCH ×4 (00:15→18:40)
[2016-07-20] MEDS: ACCU-CHEK COMFORT CURVE STRIP VI SCH ×4 (00:30→18:11)
[2016-07-20] MEDS: InsuLIN REG 1unit/0.01ml Soln (100units/ml) SC SCH ×4 (00:30→18:34)
[2016-07-20] MEDS: PIPERACILLIN-TAZOB 3.375GM 100 ML IV SCH ×4 (00:41→18:12)
[2016-07-20] MEDS: MIDAZOLAM DRIP 100 mg/100mL NS 100 ML IV SCH ×3 (00:42→20:49)
[2016-07-20 05:12] LABS: Basophils # (auto) 0 uL; Basophils % (auto) 0.2 % (0.0-2.0); Eosinophils # (auto) 0.1 uL; Eosinophils % (auto) 0.9 % (0.0-7.0); Hematocrit 31.8 % (41.0-53.0); Hemoglobin 10.6 g/dL (13.5-17.5); Lymphocytes # (auto) 1.2 uL; Lymphocytes % (auto) 9.7 % (10.0-50.0); Mean Corpuscular Hemoglobin 30.6 pg (28.0-32.0); Mean Corpuscular Hgb Conc. 33.2 g/dL (32.0-36.0); Mean Corpuscular Volume 92.3 fL (80.0-100.0); Mean Platelet Volume 9.8 fL (7.4-10.4); Monocytes # (auto) 0.8 uL; Monocytes % (auto) 6.9 % (0.0-12.0); Neutrophils # (auto) 10.1 uL; Neutrophils % (auto) 82.3 % (37.0-80.0); Platelet Count (auto) 324 10^3/uL (140-450); Red Cell Distribution Width 13.8 % (11.6-16.0); White Blood Cell 12.2 10^3/uL (4.4-10.8)
[2016-07-20 05:35] LABS: Calcium 7.1 mg/dL (8.5-10.1); Potassium 3.7 mmol/L (3.5-5.1)
[2016-07-20] MEDS: VANCOMYCIN 1GM/250ML D5W 250 ML IV SCH ×3 (05:57→22:27)
[2016-07-20] MEDS: PRO-STAT 64 30ML PO SCH ×3 (08:00→18:11)
[2016-07-20] MEDS: SODIUM CHLORIDE 0.9% 1,000 ML IV SCH ×2 (11:11→22:20)
[2016-07-20] MEDS: ENOXAPARIN SOD 40 MG/0.4 ML SYRINGE SC SCH (11:11)
[2016-07-20] MEDS: INSULIN 70/30 1unit/0.01ml Susp (100units/ml) SC SCH (12:26)
[2016-07-20] MEDS: FLUCONAZOLE 200MG/100ML 100 ML IV SCH (15:04)
[2016-07-20] MEDS ORDERED: NITROGLYCERIN 2% OINT 1GM PKG TD ONE ×2 (17:15→17:20)
[2016-07-20] MEDS: NOREPINEPHRINE BITARTRATE 250 ML IV SCH (20:30)
[2016-07-21] VITALS (79 sets, daily range): BP systolic 83–145; BP diastolic 47–87
[2016-07-21] MEDS: ALBUTEROL SULF 2.5 MG/0.5ML(0.5%) NEB SOLN NEB SCH ×3 (00:12→18:31)
[2016-07-21] MEDS: IPRATROPIUM BROM 0.5 MG/2.5ML INH SOL NEB SCH ×3 (00:12→18:31)
[2016-07-21] MEDS: ACETYLCYSTEINE 10 %(100MG/ML) SOL 4ML NEB SCH ×3 (00:14→18:31)
[2016-07-21 04:13] LABS: Calcium 7.1 mg/dL (8.5-10.1); Potassium 3.6 mmol/L (3.5-5.1)
[2016-07-21 04:27] LABS: Basophils # (auto) 0 uL; Basophils % (auto) 0.4 % (0.0-2.0); Eosinophils # (auto) 0.1 uL; Hematocrit 34.5 % (41.0-53.0); Hemoglobin 11.2 g/dL (13.5-17.5); Lymphocytes # (auto) 1.1 uL; Mean Corpuscular Hemoglobin 30.4 pg (28.0-32.0); Mean Corpuscular Hgb Conc. 32.4 g/dL (32.0-36.0); Mean Corpuscular Volume 93.8 fL (80.0-100.0); Mean Platelet Volume 10.4 fL (7.4-10.4); Monocytes # (auto) 0.6 uL; Monocytes % (auto) 5.7 % (0.0-12.0); Neutrophils # (auto) 8.6 uL; Neutrophils % (auto) 81.9 % (37.0-80.0); Platelet Count (auto) 305 10^3/uL (140-450); Red Cell Distribution Width 14.2 % (11.6-16.0); White Blood Cell 10.5 10^3/uL (4.4-10.8)
[2016-07-21] MEDS: MIDAZOLAM DRIP 100 mg/100mL NS 100 ML IV SCH ×3 (05:14→19:02)
[2016-07-21] MEDS: InsuLIN REG 1unit/0.01ml Soln (100units/ml) SC SCH ×4 (05:22→18:13)
[2016-07-21] MEDS: ACCU-CHEK COMFORT CURVE STRIP VI SCH ×4 (05:26→18:09)
[2016-07-21] MEDS: PIPERACILLIN-TAZOB 3.375GM 100 ML IV SCH ×4 (05:45→18:10)
[2016-07-21] MEDS: PRO-STAT 64 30ML PO SCH ×3 (08:30→18:09)
[2016-07-21] MEDS: VANCOMYCIN 1GM/250ML D5W 250 ML IV SCH ×2 (09:58→22:52)
[2016-07-21] MEDS: ENOXAPARIN SOD 40 MG/0.4 ML SYRINGE SC SCH (09:58)
[2016-07-21] MEDS: INSULIN 70/30 1unit/0.01ml Susp (100units/ml) SC SCH ×2 (12:39)
[2016-07-21] MEDS ORDERED: LIDOCAINE 1% HCL (LOCAL ANESTH.) INJ 20ML MDV ID ONE (13:15)
[2016-07-21] MEDS: SOD CHL 0.9%/ KCL 20MEQ 1,000 ML IV SCH ×2 (13:46→21:20)
[2016-07-21] MEDS: FLUCONAZOLE 200MG/100ML 100 ML IV SCH (16:10)
[2016-07-21] MEDS: NOREPINEPHRINE BITARTRATE 250 ML IV SCH (18:08)
[2016-07-21 18:20] LABS: INR 1.17 (0.9-1.15)
[2016-07-21] MEDS: SODIUM CHLOR 0.9% PF (SALINE LOCK) 10ML VIAL IV SCH (22:00)
[2016-07-22] VITALS (94 sets, daily range): BP systolic 73–143; BP diastolic 40–81
[2016-07-22] MEDS: PIPERACILLIN-TAZOB 3.375GM 100 ML IV SCH ×4 (00:14→17:49)
[2016-07-22] MEDS: INSULIN 70/30 1unit/0.01ml Susp (100units/ml) SC SCH ×2 (00:15→12:07)
[2016-07-22] MEDS: InsuLIN REG 1unit/0.01ml Soln (100units/ml) SC SCH ×4 (00:17→17:27)
[2016-07-22] MEDS: ACCU-CHEK COMFORT CURVE STRIP VI SCH ×4 (00:29→17:27)
[2016-07-22] MEDS: ACETYLCYSTEINE 10 %(100MG/ML) SOL 4ML NEB SCH ×4 (00:30→18:00)
[2016-07-22] MEDS: IPRATROPIUM BROM 0.5 MG/2.5ML INH SOL NEB SCH ×4 (00:30→18:00)
[2016-07-22] MEDS: ALBUTEROL SULF 2.5 MG/0.5ML(0.5%) NEB SOLN NEB SCH ×4 (00:30→18:00)
[2016-07-22] MEDS: MIDAZOLAM DRIP 100 mg/100mL NS 100 ML IV SCH ×4 (01:39→21:58)
[2016-07-22 05:01] LABS: Basophils # (auto) 0 uL; Basophils % (auto) 0.1 % (0.0-2.0); Eosinophils # (auto) 0.2 uL; Eosinophils % (auto) 2.2 % (0.0-7.0); Hematocrit 29.6 % (41.0-53.0); Hemoglobin 9.9 g/dL (13.5-17.5); Lymphocytes # (auto) 1.1 uL; Lymphocytes % (auto) 11.3 % (10.0-50.0); Mean Corpuscular Hemoglobin 30.7 pg (28.0-32.0); Mean Corpuscular Hgb Conc. 33.3 g/dL (32.0-36.0); Mean Corpuscular Volume 92.1 fL (80.0-100.0); Mean Platelet Volume 10.4 fL (7.4-10.4); Monocytes # (auto) 0.6 uL; Monocytes % (auto) 5.8 % (0.0-12.0); Neutrophils # (auto) 8.1 uL; Neutrophils % (auto) 80.6 % (37.0-80.0); Platelet Count (auto) 266 10^3/uL (140-450); Red Cell Distribution Width 13.7 % (11.6-16.0); White Blood Cell 10.1 10^3/uL (4.4-10.8)
[2016-07-22 05:05] LABS: BUN/Creatinine Ratio 23.4; Calcium 7.1 mg/dL (8.5-10.1); Potassium 3.9 mmol/L (3.5-5.1)
[2016-07-22] MEDS: PRO-STAT 64 30ML PO SCH ×3 (08:00→17:27)
[2016-07-22] MEDS: NOREPINEPHRINE BITARTRATE 250 ML IV SCH (09:31)
[2016-07-22] MEDS: SOD CHL 0.9%/ KCL 20MEQ 1,000 ML IV SCH ×2 (09:31→17:49)
[2016-07-22] MEDS: SODIUM CHLOR 0.9% PF (SALINE LOCK) 10ML VIAL IV SCH ×2 (09:32→21:58)
[2016-07-22] MEDS: ENOXAPARIN SOD 40 MG/0.4 ML SYRINGE SC SCH (09:32)
[2016-07-22] MEDS ORDERED: NALOXONE HCL 0.4 MG/ML VIAL ONE (09:48)
[2016-07-22] MEDS ORDERED: fentaNYL CITRATE 100 MCG/2 ML VL ONE (09:48)
[2016-07-22] MEDS ORDERED: FLUMAZENIL 0.1 MG/ML INJ 10ML MDV IV ONE (09:48)
[2016-07-22] MEDS ORDERED: SODIUM CHLORIDE LOCK 10 ML ONE (09:48)
[2016-07-22] MEDS ORDERED: LIDOCAINE 2%HCL (LOCAL ANESTH.) INJ 20ML MDV ONE (09:48)
[2016-07-22] MEDS ORDERED: LIDOCAINE HCL 2% TOP JELLY 5ML TOP ONE (09:49)
[2016-07-22] MEDS ORDERED: MIDAZOLAM HCL 5 MG/ML-1ML VIAL ONE (09:49)
[2016-07-22] MEDS ORDERED: EPINEPHrine HCL 1 MG/1 ML AMP ONE (09:49)
[2016-07-22] MEDS: VANCOMYCIN 1,250 MG in D5W 5% 250 ML IV SCH ×2 (09:50→21:58)
[2016-07-22] MEDS: fentaNYL Drip 2500mCg/250mlNS 250 ML IV SCH (11:36)
[2016-07-22] MEDS: FLUCONAZOLE 200MG/100ML 100 ML IV SCH (14:51)
[2016-07-22 21:19] LABS: Urine Bilirubin Negative (Negative); Urine Blood TRACE /uL (Negative); Urine Color Yellow (Yellow); Urine Glucose Normal (Normal); Urine Ketone Negative (Negative); Urine Nitrite Negative (Negative); Urine RBC 9 /hpf (0 - 3); Urine Squamous Epithelial Cell FEW /hpf (<5); Urine Urobilinogen Normal (Negative)
[2016-07-23] VITALS (94 sets, daily range): BP systolic 78–144; BP diastolic 41–89
[2016-07-23] MEDS: IPRATROPIUM BROM 0.5 MG/2.5ML INH SOL NEB SCH ×4 (00:09→18:56)
[2016-07-23] MEDS: ALBUTEROL SULF 2.5 MG/0.5ML(0.5%) NEB SOLN NEB SCH ×4 (00:09→18:56)
[2016-07-23] MEDS: ACETYLCYSTEINE 10 %(100MG/ML) SOL 4ML NEB SCH ×4 (00:10→18:56)
[2016-07-23] MEDS: PIPERACILLIN-TAZOB 3.375GM 100 ML IV SCH ×5 (00:11→23:45)
[2016-07-23] MEDS: ACCU-CHEK COMFORT CURVE STRIP VI SCH ×5 (00:11→23:45)
[2016-07-23] MEDS: InsuLIN REG 1unit/0.01ml Soln (100units/ml) SC SCH ×4 (00:24→18:00)
[2016-07-23] MEDS: INSULIN 70/30 1unit/0.01ml Susp (100units/ml) SC SCH ×2 (00:25→11:44)
[2016-07-23] MEDS: SOD CHL 0.9%/ KCL 20MEQ 1,000 ML IV SCH ×3 (00:51→10:45)
[2016-07-23 06:18] LABS: Basophils # (auto) 0 uL; Basophils % (auto) 0.4 % (0.0-2.0); Eosinophils # (auto) 0.3 uL; Hematocrit 30.3 % (41.0-53.0); Hemoglobin 9.9 g/dL (13.5-17.5); Lymphocytes % (auto) 12.9 % (10.0-50.0); Mean Corpuscular Hemoglobin 30.5 pg (28.0-32.0); Mean Corpuscular Hgb Conc. 32.7 g/dL (32.0-36.0); Mean Corpuscular Volume 93.2 fL (80.0-100.0); Mean Platelet Volume 9.6 fL (7.4-10.4); Monocytes # (auto) 0.4 uL; Monocytes % (auto) 5.6 % (0.0-12.0); Neutrophils # (auto) 6.2 uL; Neutrophils % (auto) 77.1 % (37.0-80.0); Platelet Count (auto) 250 10^3/uL (140-450); Red Cell Distribution Width 14.5 % (11.6-16.0)
[2016-07-23 06:43] LABS: Albumin 1.6 g/dL (3.4-5.0); BUN/Creatinine Ratio 21.3; Calcium 7.9 mg/dL (8.5-10.1)
[2016-07-23 06:46] LABS: Bilirubin, Total 0.3 mg/dL (0.2-1.0)
[2016-07-23] MEDS: PRO-STAT 64 30ML PO SCH ×3 (08:00→17:53)
[2016-07-23] MEDS: SODIUM CHLOR 0.9% PF (SALINE LOCK) 10ML VIAL IV SCH ×2 (09:54→17:53)
[2016-07-23] MEDS: ENOXAPARIN SOD 40 MG/0.4 ML SYRINGE SC SCH (09:54)
[2016-07-23] MEDS: VANCOMYCIN 1,250 MG in D5W 5% 250 ML IV SCH ×2 (09:55→21:58)
[2016-07-23] MEDS: fentaNYL Drip 2500mCg/250mlNS 250 ML IV SCH (11:18)
[2016-07-23] MEDS: ALBUMIN 25% 100 ML IV SCH ×2 (11:39→12:11)
[2016-07-23] MEDS: FLUCONAZOLE 200MG/100ML 100 ML IV SCH (15:43)
[2016-07-23] MEDS: NOREPINEPHRINE BITARTRATE 250 ML IV SCH (16:24)
[2016-07-23] MEDS ORDERED: FUROSEMIDE 20 MG/2 ML VIAL IV ONE ×2 (17:45→18:15)
[2016-07-23] MEDS ORDERED: FUROSEMIDE 20 MG/2 ML VIAL ONE (18:12)
[2016-07-24] VITALS (100 sets, daily range): BP systolic 80–138; BP diastolic 40–83
[2016-07-24] MEDS: InsuLIN REG 1unit/0.01ml Soln (100units/ml) SC SCH ×4 (00:10→17:58)
[2016-07-24] MEDS: ALBUTEROL SULF 2.5 MG/0.5ML(0.5%) NEB SOLN NEB SCH ×4 (00:23→19:35)
[2016-07-24] MEDS: IPRATROPIUM BROM 0.5 MG/2.5ML INH SOL NEB SCH ×4 (00:23→19:35)
[2016-07-24] MEDS: ACETYLCYSTEINE 10 %(100MG/ML) SOL 4ML NEB SCH ×4 (00:23→19:35)
[2016-07-24] MEDS: ACCU-CHEK COMFORT CURVE STRIP VI SCH ×3 (06:09→17:58)
[2016-07-24] MEDS: PIPERACILLIN-TAZOB 3.375GM 100 ML IV SCH (06:14)
[2016-07-24] MEDS: PRO-STAT 64 30ML PO SCH ×3 (08:00→18:22)
[2016-07-24] MEDS: ENOXAPARIN SOD 40 MG/0.4 ML SYRINGE SC SCH (09:45)
[2016-07-24] MEDS: SODIUM CHLOR 0.9% PF (SALINE LOCK) 10ML VIAL IV SCH ×2 (09:47→21:38)
[2016-07-24] MEDS: VANCOMYCIN 1,250 MG in D5W 5% 250 ML IV SCH (09:52)
[2016-07-24] MEDS: INSULIN 70/30 1unit/0.01ml Susp (100units/ml) SC SCH ×2 (12:00)
[2016-07-24] MEDS ORDERED: SOD CHL 0.9%/ KCL 20MEQ 1,000 ML IV SCH (13:00)
[2016-07-24] MEDS ORDERED: LORazepam 2MG/ML-1ML VIAL IV PRN (14:15)
[2016-07-24] MEDS: FLUCONAZOLE 200MG/100ML 100 ML IV SCH (15:32)
[2016-07-24] MEDS: NOREPINEPHRINE BITARTRATE 250 ML IV SCH (15:47)
[2016-07-24] MEDS: CEFTRIAXONE SODIUM 2 GM in D5W 5% 50 ML IV SCH (15:47)
[2016-07-24] MEDS: HYDROmorphone HCL 2 MG/ML VL IV PRN (21:38)
[2016-07-25] VITALS (82 sets, daily range): BP systolic 91–159; BP diastolic 52–95
[2016-07-25] MEDS: ACCU-CHEK COMFORT CURVE STRIP VI SCH ×4 (00:09→17:06)
[2016-07-25] MEDS: INSULIN 70/30 1unit/0.01ml Susp (100units/ml) SC SCH ×2 (00:10→12:22)
[2016-07-25] MEDS: ALBUTEROL SULF 2.5 MG/0.5ML(0.5%) NEB SOLN NEB SCH ×4 (00:51→19:30)
[2016-07-25] MEDS: IPRATROPIUM BROM 0.5 MG/2.5ML INH SOL NEB SCH ×4 (00:51→19:29)
[2016-07-25] MEDS: ACETYLCYSTEINE 10 %(100MG/ML) SOL 4ML NEB SCH ×4 (00:51→19:30)
[2016-07-25 04:01] LABS: Basophils # (auto) 0 uL; Basophils % (auto) 0.2 % (0.0-2.0); Eosinophils # (auto) 0.2 uL; Eosinophils % (auto) 1.5 % (0.0-7.0); Hematocrit 30.9 % (41.0-53.0); Hemoglobin 10.2 g/dL (13.5-17.5); Lymphocytes % (auto) 8.5 % (10.0-50.0); Mean Corpuscular Hemoglobin 30.5 pg (28.0-32.0); Mean Corpuscular Hgb Conc. 32.9 g/dL (32.0-36.0); Mean Corpuscular Volume 92.5 fL (80.0-100.0); Mean Platelet Volume 9.7 fL (7.4-10.4); Monocytes # (auto) 0.4 uL; Monocytes % (auto) 3.8 % (0.0-12.0); Platelet Count (auto) 223 10^3/uL (140-450); Red Cell Distribution Width 14.3 % (11.6-16.0); White Blood Cell 11.7 10^3/uL (4.4-10.8)
[2016-07-25 04:19] LABS: BUN/Creatinine Ratio 19.5; Calcium 8.9 mg/dL (8.5-10.1); Potassium 3.6 mmol/L (3.5-5.1)
[2016-07-25] MEDS: InsuLIN REG 1unit/0.01ml Soln (100units/ml) SC SCH ×4 (06:00→18:00)
[2016-07-25] MEDS: PRO-STAT 64 30ML PO SCH ×3 (08:00→17:06)
[2016-07-25] MEDS: ENOXAPARIN SOD 40 MG/0.4 ML SYRINGE SC SCH (09:46)
[2016-07-25] MEDS: CEFTRIAXONE SODIUM 2 GM in D5W 5% 50 ML IV SCH (09:46)
[2016-07-25] MEDS: SODIUM CHLOR 0.9% PF (SALINE LOCK) 10ML VIAL IV SCH ×2 (09:47→21:43)
[2016-07-25] MEDS: FLUCONAZOLE 200MG/100ML 100 ML IV SCH (13:56)
[2016-07-25] MEDS: NOREPINEPHRINE BITARTRATE 250 ML IV SCH (16:24)
[2016-07-26] VITALS (51 sets, daily range): BP systolic 100–156; BP diastolic 63–107
[2016-07-26] MEDS: ALBUTEROL SULF 2.5 MG/0.5ML(0.5%) NEB SOLN NEB SCH ×4 (00:46→18:00)
[2016-07-26] MEDS: ACETYLCYSTEINE 10 %(100MG/ML) SOL 4ML NEB SCH ×4 (00:46→18:00)
[2016-07-26] MEDS: IPRATROPIUM BROM 0.5 MG/2.5ML INH SOL NEB SCH ×4 (00:46→18:00)
[2016-07-26 03:58] LABS: BUN/Creatinine Ratio 25.6; Calcium 9.4 mg/dL (8.5-10.1); Potassium 3.6 mmol/L (3.5-5.1)
[2016-07-26 04:00] LABS: Basophils # (auto) 0 uL; Basophils % (auto) 0.2 % (0.0-2.0); Eosinophils # (auto) 0.1 uL; Eosinophils % (auto) 0.8 % (0.0-7.0); Hematocrit 31.6 % (41.0-53.0); Hemoglobin 10.4 g/dL (13.5-17.5); Lymphocytes % (auto) 9.5 % (10.0-50.0); Mean Corpuscular Hemoglobin 30.5 pg (28.0-32.0); Mean Corpuscular Hgb Conc. 32.8 g/dL (32.0-36.0); Mean Corpuscular Volume 92.8 fL (80.0-100.0); Mean Platelet Volume 9.4 fL (7.4-10.4); Monocytes # (auto) 0.7 uL; Monocytes % (auto) 6.4 % (0.0-12.0); Neutrophils # (auto) 8.7 uL; Neutrophils % (auto) 83.1 % (37.0-80.0); Platelet Count (auto) 232 10^3/uL (140-450); Red Cell Distribution Width 14.2 % (11.6-16.0); White Blood Cell 10.5 10^3/uL (4.4-10.8)
[2016-07-26] MEDS: ACCU-CHEK COMFORT CURVE STRIP VI SCH ×4 (06:00→18:00)
[2016-07-26] MEDS: InsuLIN REG 1unit/0.01ml Soln (100units/ml) SC SCH ×4 (06:00→18:00)
[2016-07-26] MEDS: PRO-STAT 64 30ML PO SCH ×3 (08:00→18:00)
[2016-07-26] MEDS: SODIUM CHLOR 0.9% PF (SALINE LOCK) 10ML VIAL IV SCH ×2 (09:34→21:49)
[2016-07-26] MEDS: ENOXAPARIN SOD 40 MG/0.4 ML SYRINGE SC SCH (09:35)
[2016-07-26] MEDS: CEFTRIAXONE SODIUM 2 GM in D5W 5% 50 ML IV SCH (09:45)
[2016-07-26] MEDS ORDERED: MORPHINE SULF INJ 2 MG/ML SYRINGE 1ML IV PRN (11:15)
[2016-07-26] MEDS: INSULIN 70/30 1unit/0.01ml Susp (100units/ml) SC SCH ×2 (12:26)
[2016-07-26] MEDS: FLUCONAZOLE 200MG/100ML 100 ML IV SCH (13:41)
[2016-07-26] MEDS: NOREPINEPHRINE BITARTRATE 250 ML IV SCH (15:33)
[2016-07-27] VITALS (26 sets, daily range): BP systolic 111–144; BP diastolic 48–87
[2016-07-27] MEDS: INSULIN 70/30 1unit/0.01ml Susp (100units/ml) SC SCH ×2 (00:15→12:25)
[2016-07-27] MEDS: ACCU-CHEK COMFORT CURVE STRIP VI SCH ×4 (00:15→18:09)
[2016-07-27] MEDS: InsuLIN REG 1unit/0.01ml Soln (100units/ml) SC SCH ×4 (00:15→18:00)
[2016-07-27] MEDS: IPRATROPIUM BROM 0.5 MG/2.5ML INH SOL NEB SCH ×5 (00:34→23:44)
[2016-07-27] MEDS: ACETYLCYSTEINE 10 %(100MG/ML) SOL 4ML NEB SCH ×5 (00:35→23:44)
[2016-07-27] MEDS: ALBUTEROL SULF 2.5 MG/0.5ML(0.5%) NEB SOLN NEB SCH ×5 (00:35→23:44)
[2016-07-27] MEDS: PRO-STAT 64 30ML PO SCH ×3 (08:00→18:00)
[2016-07-27] MEDS: ENOXAPARIN SOD 40 MG/0.4 ML SYRINGE SC SCH (10:26)
[2016-07-27] MEDS: SODIUM CHLOR 0.9% PF (SALINE LOCK) 10ML VIAL IV SCH ×2 (10:26→22:00)
[2016-07-27] MEDS: CEFTRIAXONE SODIUM 2 GM in D5W 5% 50 ML IV SCH (10:26)
[2016-07-27] MEDS: FLUCONAZOLE 200MG/100ML 100 ML IV SCH (14:26)
[2016-07-27] MEDS: NOREPINEPHRINE BITARTRATE 250 ML IV SCH (14:26)
[2016-07-27] MEDS: Boost Glucose Control 8 Ounces PO SCH (20:00)
[2016-07-27] MEDS: HYDROmorphone HCL 2 MG/ML VL IV PRN (21:15)
[2016-07-28] VITALS (9 sets, daily range): BP systolic 111–136; BP diastolic 51–81
[2016-07-28] MEDS: HYDROmorphone HCL 2 MG/ML VL IV PRN ×2 (02:39→06:34)
[2016-07-28] MEDS: ACCU-CHEK COMFORT CURVE STRIP VI SCH ×4 (06:00→17:34)
[2016-07-28] MEDS: InsuLIN REG 1unit/0.01ml Soln (100units/ml) SC SCH ×5 (06:00→23:59)
[2016-07-28] MEDS: IPRATROPIUM BROM 0.5 MG/2.5ML INH SOL NEB SCH ×3 (06:53→20:22)
[2016-07-28] MEDS: ACETYLCYSTEINE 10 %(100MG/ML) SOL 4ML NEB SCH ×3 (06:53→20:22)
[2016-07-28] MEDS: ALBUTEROL SULF 2.5 MG/0.5ML(0.5%) NEB SOLN NEB SCH ×3 (06:53→20:22)
[2016-07-28] MEDS: PRO-STAT 64 30ML PO SCH ×3 (08:00→17:34)
[2016-07-28] MEDS: Boost Glucose Control 8 Ounces PO SCH ×3 (10:00→20:00)
[2016-07-28] MEDS: ENOXAPARIN SOD 40 MG/0.4 ML SYRINGE SC SCH (11:08)
[2016-07-28] MEDS: CEFTRIAXONE SODIUM 2 GM in D5W 5% 50 ML IV SCH (11:09)
[2016-07-28] MEDS: SODIUM CHLOR 0.9% PF (SALINE LOCK) 10ML VIAL IV SCH ×2 (11:09→20:43)
[2016-07-28] MEDS: INSULIN 70/30 1unit/0.01ml Susp (100units/ml) SC SCH ×2 (12:19)
[2016-07-28] MEDS: FLUCONAZOLE 200MG/100ML 100 ML IV SCH (14:13)
[2016-07-29 00:05] VITALS: BP 121/81
[2016-07-29] MEDS: InsuLIN REG 1unit/0.01ml Soln (100units/ml) SC SCH ×4 (00:08→17:35)
[2016-07-29] MEDS: IPRATROPIUM BROM 0.5 MG/2.5ML INH SOL NEB SCH ×4 (00:20→18:39)
[2016-07-29] MEDS: ACETYLCYSTEINE 10 %(100MG/ML) SOL 4ML NEB SCH ×4 (00:20→18:39)
[2016-07-29] MEDS: ALBUTEROL SULF 2.5 MG/0.5ML(0.5%) NEB SOLN NEB SCH ×4 (00:20→18:39)
[2016-07-29] MEDS: ACCU-CHEK COMFORT CURVE STRIP VI SCH ×4 (06:05→17:35)
[2016-07-29 08:00] VITALS: BP 111/71
[2016-07-29] MEDS: PRO-STAT 64 30ML PO SCH ×3 (08:00→18:00)
[2016-07-29 09:00] VITALS: BP 110/72
[2016-07-29] MEDS: Boost Glucose Control 8 Ounces PO SCH ×3 (10:09→20:00)
[2016-07-29] MEDS: SODIUM CHLOR 0.9% PF (SALINE LOCK) 10ML VIAL IV SCH ×2 (10:09→21:41)
[2016-07-29] MEDS: CEFTRIAXONE SODIUM 2 GM in D5W 5% 50 ML IV SCH (10:09)
[2016-07-29] MEDS: ENOXAPARIN SOD 40 MG/0.4 ML SYRINGE SC SCH (10:09)
[2016-07-29 12:00] VITALS: BP 116/78
[2016-07-29] MEDS: INSULIN 70/30 1unit/0.01ml Susp (100units/ml) SC SCH ×2 (12:37)
[2016-07-29] MEDS: FLUCONAZOLE 200MG/100ML 100 ML IV SCH (14:17)
[2016-07-29 16:00] VITALS: BP 111/71
[2016-07-29 20:00] VITALS: BP 115/76
[2016-07-30] VITALS: BP 119/73
[2016-07-30] MEDS: ACCU-CHEK COMFORT CURVE STRIP VI SCH ×5 (00:11→23:19)
[2016-07-30] MEDS: IPRATROPIUM BROM 0.5 MG/2.5ML INH SOL NEB SCH ×4 (00:52→19:01)
[2016-07-30] MEDS: ALBUTEROL SULF 2.5 MG/0.5ML(0.5%) NEB SOLN NEB SCH ×4 (00:52→19:01)
[2016-07-30] MEDS: ACETYLCYSTEINE 10 %(100MG/ML) SOL 4ML NEB SCH ×4 (00:52→19:01)
[2016-07-30 04:00] VITALS: BP 114/75
[2016-07-30] MEDS: InsuLIN REG 1unit/0.01ml Soln (100units/ml) SC SCH ×5 (06:00→23:19)
[2016-07-30 06:14] LABS: Calcium 8.8 mg/dL (8.5-10.1); Potassium 3.4 mmol/L (3.5-5.1)
[2016-07-30 06:17] LABS: BUN/Creatinine Ratio 27.1
[2016-07-30 06:20] LABS: Basophils # (auto) 0 uL; Basophils % (auto) 0.5 % (0.0-2.0); Eosinophils # (auto) 0.5 uL; Eosinophils % (auto) 5.6 % (0.0-7.0); Hematocrit 30.5 % (41.0-53.0); Hemoglobin 9.9 g/dL (13.5-17.5); Lymphocytes # (auto) 1.5 uL; Lymphocytes % (auto) 17.5 % (10.0-50.0); Mean Corpuscular Hemoglobin 30.2 pg (28.0-32.0); Mean Corpuscular Hgb Conc. 32.4 g/dL (32.0-36.0); Mean Corpuscular Volume 93.2 fL (80.0-100.0); Mean Platelet Volume 9.4 fL (7.4-10.4); Monocytes # (auto) 0.5 uL; Monocytes % (auto) 5.9 % (0.0-12.0); Neutrophils # (auto) 6.2 uL; Neutrophils % (auto) 70.5 % (37.0-80.0); Platelet Count (auto) 242 10^3/uL (140-450); Red Cell Distribution Width 14.1 % (11.6-16.0); White Blood Cell 8.7 10^3/uL (4.4-10.8)
[2016-07-30 08:00] VITALS: BP 123/76
[2016-07-30] MEDS: PRO-STAT 64 30ML PO SCH ×3 (08:00→18:00)
[2016-07-30] MEDS: SODIUM CHLOR 0.9% PF (SALINE LOCK) 10ML VIAL IV SCH ×2 (09:53→23:18)
[2016-07-30] MEDS: Boost Glucose Control 8 Ounces PO SCH ×3 (09:53→23:19)
[2016-07-30] MEDS: CEFTRIAXONE SODIUM 2 GM in D5W 5% 50 ML IV SCH (09:53)
[2016-07-30] MEDS: ENOXAPARIN SOD 40 MG/0.4 ML SYRINGE SC SCH (09:54)
[2016-07-30 12:00] VITALS: BP 106/69
[2016-07-30] MEDS: INSULIN 70/30 1unit/0.01ml Susp (100units/ml) SC SCH ×3 (12:50→23:20)
[2016-07-30] MEDS: FLUCONAZOLE 200MG/100ML 100 ML IV SCH (14:57)
[2016-07-30 16:00] VITALS: BP 99/71
[2016-07-31] MEDS: ALBUTEROL SULF 2.5 MG/0.5ML(0.5%) NEB SOLN NEB SCH ×4 (00:17→18:00)
[2016-07-31] MEDS: ACETYLCYSTEINE 10 %(100MG/ML) SOL 4ML NEB SCH ×4 (00:18→18:00)
[2016-07-31] MEDS: IPRATROPIUM BROM 0.5 MG/2.5ML INH SOL NEB SCH ×4 (00:18→18:00)
[2016-07-31 04:23] VITALS: BP 99/71
[2016-07-31 04:29] VITALS: BP 114/75
[2016-07-31] MEDS: InsuLIN REG 1unit/0.01ml Soln (100units/ml) SC SCH ×4 (06:00→23:43)
[2016-07-31] MEDS: ACCU-CHEK COMFORT CURVE STRIP VI SCH ×4 (06:52→23:42)
[2016-07-31 08:00] VITALS: BP 110/71
[2016-07-31] MEDS: PRO-STAT 64 30ML PO SCH ×3 (08:00→18:01)
[2016-07-31] MEDS ORDERED: POTASSIUM CHL 20 Meq TABLET PO ONE (09:45)
[2016-07-31] MEDS: SODIUM CHLOR 0.9% PF (SALINE LOCK) 10ML VIAL IV SCH ×2 (10:00→23:28)
[2016-07-31] MEDS: Boost Glucose Control 8 Ounces PO SCH ×3 (10:00→20:00)
[2016-07-31] MEDS: CEFTRIAXONE SODIUM 2 GM in D5W 5% 50 ML IV SCH (10:39)
[2016-07-31] MEDS: ENOXAPARIN SOD 40 MG/0.4 ML SYRINGE SC SCH (10:39)
[2016-07-31 12:00] VITALS: BP 99/67
[2016-07-31] MEDS: INSULIN 70/30 1unit/0.01ml Susp (100units/ml) SC SCH ×2 (12:33→23:44)
[2016-07-31] MEDS: FLUCONAZOLE 200MG/100ML 100 ML IV SCH (14:32)
[2016-07-31 17:00] VITALS: BP 121/77
[2016-07-31 21:48] VITALS: BP 117/75
[2016-08-01] MEDS: IPRATROPIUM BROM 0.5 MG/2.5ML INH SOL NEB SCH ×4 (01:24→19:49)
[2016-08-01] MEDS: ACETYLCYSTEINE 10 %(100MG/ML) SOL 4ML NEB SCH ×4 (01:24→19:50)
[2016-08-01] MEDS: ALBUTEROL SULF 2.5 MG/0.5ML(0.5%) NEB SOLN NEB SCH ×4 (01:24→19:49)
[2016-08-01] MEDS: ACCU-CHEK COMFORT CURVE STRIP VI SCH ×3 (05:42→23:46)
[2016-08-01] MEDS: InsuLIN REG 1unit/0.01ml Soln (100units/ml) SC SCH ×3 (05:42→23:44)
[2016-08-01 05:44] VITALS: BP 120/76
[2016-08-01 08:00] VITALS: BP 120/78
[2016-08-01] MEDS: PRO-STAT 64 30ML PO SCH ×2 (08:23→13:38)
[2016-08-01] MEDS: Boost Glucose Control 8 Ounces PO SCH ×3 (08:23→20:00)
[2016-08-01] MEDS ORDERED: LIDOCAINE 2%HCL (LOCAL ANESTH.) INJ 20ML MDV ONE (08:33)
[2016-08-01] MEDS: CEFTRIAXONE SODIUM 2 GM in D5W 5% 50 ML IV SCH (08:39)
[2016-08-01] MEDS: ENOXAPARIN SOD 40 MG/0.4 ML SYRINGE SC SCH (08:40)
[2016-08-01] MEDS: SODIUM CHLOR 0.9% PF (SALINE LOCK) 10ML VIAL IV SCH ×2 (08:40→22:00)
[2016-08-01 11:57] VITALS: BP 111/76
[2016-08-01] MEDS: INSULIN 70/30 1unit/0.01ml Susp (100units/ml) SC SCH ×2 (13:37→23:43)
[2016-08-01] MEDS: FLUCONAZOLE 200MG/100ML 100 ML IV SCH (13:39)
[2016-08-01] MEDS: IBUPROFEN 400 MG TAB PO PRN ×2 (15:28→22:52)
[2016-08-01 16:00] VITALS: BP 105/75
[2016-08-01] MEDS ORDERED: DEXTROSE (50%) 50ML SYRG IV PRN (18:30)
[2016-08-01] MEDS ORDERED: HYDROmorphone HCL 2 MG/ML VL IV PRN (18:30)
[2016-08-01] MEDS ORDERED: ACETAMINOPHEN 650 mg PER 20 mL UD GT PRN (18:30)
[2016-08-01] MEDS ORDERED: NITROGLYCERIN 0.4 MG SL TAB SL PRN (18:30)
[2016-08-01] MEDS ORDERED: LACTULOSE 20Gm/30ML SOLN PO PRN (18:30)
[2016-08-01] MEDS ORDERED: LORazepam 2MG/ML-1ML VIAL IV PRN (18:30)
[2016-08-01 21:43] VITALS: BP 111/64
[2016-08-02] MEDS: IPRATROPIUM BROM 0.5 MG/2.5ML INH SOL NEB SCH ×5 (01:26→23:40)
[2016-08-02] MEDS: ALBUTEROL SULF 2.5 MG/0.5ML(0.5%) NEB SOLN NEB SCH ×4 (01:26→23:41)
[2016-08-02] MEDS: ACETYLCYSTEINE 10 %(100MG/ML) SOL 4ML NEB SCH ×5 (01:26→23:40)
[2016-08-02 05:22] VITALS: BP 105/71
[2016-08-02] MEDS: InsuLIN REG 1unit/0.01ml Soln (100units/ml) SC SCH ×4 (06:00→23:56)
[2016-08-02] MEDS: ACCU-CHEK COMFORT CURVE STRIP VI SCH ×4 (06:06→23:45)
[2016-08-02 06:23] LABS: Basophils # (auto) 0 uL; Basophils % (auto) 0.1 % (0.0-2.0); Eosinophils # (auto) 0.6 uL; Hematocrit 31.4 % (41.0-53.0); Hemoglobin 10.3 g/dL (13.5-17.5); Lymphocytes # (auto) 1.6 uL; Lymphocytes % (auto) 17.2 % (10.0-50.0); Mean Corpuscular Hemoglobin 30.6 pg (28.0-32.0); Mean Corpuscular Hgb Conc. 32.7 g/dL (32.0-36.0); Mean Corpuscular Volume 93.8 fL (80.0-100.0); Mean Platelet Volume 9.9 fL (7.4-10.4); Monocytes # (auto) 0.5 uL; Monocytes % (auto) 5.6 % (0.0-12.0); Neutrophils # (auto) 6.5 uL; Neutrophils % (auto) 71.1 % (37.0-80.0); Platelet Count (auto) 202 10^3/uL (140-450); Red Cell Distribution Width 13.2 % (11.6-16.0); SUSPECT VIEW TRANSMISSION; White Blood Cell 9.2 10^3/uL (4.4-10.8)
[2016-08-02 06:27] LABS: Potassium 3.7 mmol/L (3.5-5.1)
[2016-08-02 06:34] LABS: BUN/Creatinine Ratio 33.3; Calcium 8.8 mg/dL (8.5-10.1)
[2016-08-02] MEDS: PRO-STAT 64 30ML PO SCH ×3 (08:00→17:31)
[2016-08-02 09:00] VITALS: BP 119/75
[2016-08-02] MEDS: SODIUM CHLOR 0.9% PF (SALINE LOCK) 10ML VIAL IV SCH (09:33)
[2016-08-02] MEDS: CEFTRIAXONE SODIUM 2 GM in D5W 5% 50 ML IV SCH (09:33)
[2016-08-02] MEDS: Boost Glucose Control 8 Ounces PO SCH ×2 (09:37→15:14)
[2016-08-02] MEDS ORDERED: MORPHINE SULF INJ 2 MG/ML SYRINGE 1ML IV PRN (12:00)
[2016-08-02] MEDS: INSULIN 70/30 1unit/0.01ml Susp (100units/ml) SC SCH (12:00)
[2016-08-02 12:42] VITALS: BP 120/77
[2016-08-02] MEDS: FLUCONAZOLE 200MG/100ML 100 ML IV SCH (13:49)
[2016-08-02 16:30] VITALS: BP 128/75
[2016-08-02] MEDS: IBUPROFEN 400 MG TAB PO PRN (20:46)
[2016-08-02 22:00] VITALS: BP 108/71
[2016-08-03] MEDS: SODIUM CHLOR 0.9% PF (SALINE LOCK) 10ML VIAL IV SCH ×2 (01:22→08:55)
[2016-08-03] MEDS: Boost Glucose Control 8 Ounces PO SCH ×4 (01:23→20:00)
[2016-08-03 04:59] VITALS: BP 101/71
[2016-08-03] MEDS: InsuLIN REG 1unit/0.01ml Soln (100units/ml) SC SCH ×3 (06:00→17:18)
[2016-08-03] MEDS: ACCU-CHEK COMFORT CURVE STRIP VI SCH ×3 (06:19→17:18)
[2016-08-03 06:56] LABS: Basophils # (auto) 0 uL; Basophils % (auto) 0.6 % (0.0-2.0); Eosinophils # (auto) 0.6 uL; Hematocrit 32.2 % (41.0-53.0); Hemoglobin 10.7 g/dL (13.5-17.5); Lymphocytes # (auto) 1.3 uL; Lymphocytes % (auto) 16.7 % (10.0-50.0); Mean Corpuscular Hemoglobin 30.6 pg (28.0-32.0); Mean Corpuscular Hgb Conc. 33.2 g/dL (32.0-36.0); Mean Corpuscular Volume 92.3 fL (80.0-100.0); Mean Platelet Volume 9.9 fL (7.4-10.4); Monocytes # (auto) 0.6 uL; Monocytes % (auto) 7.4 % (0.0-12.0); Neutrophils # (auto) 5.3 uL; Neutrophils % (auto) 67.3 % (37.0-80.0); Platelet Count (auto) 243 10^3/uL (140-450); Red Cell Distribution Width 14.3 % (11.6-16.0); White Blood Cell 7.9 10^3/uL (4.4-10.8)
[2016-08-03] MEDS: ALBUTEROL SULF 2.5 MG/0.5ML(0.5%) NEB SOLN NEB SCH ×3 (06:58→18:00)
[2016-08-03] MEDS: ACETYLCYSTEINE 10 %(100MG/ML) SOL 4ML NEB SCH ×3 (06:58→18:00)
[2016-08-03] MEDS: IPRATROPIUM BROM 0.5 MG/2.5ML INH SOL NEB SCH ×3 (06:58→18:00)
[2016-08-03 07:03] LABS: INR 1.17 (0.9-1.15)
[2016-08-03 07:05] LABS: Potassium 4.2 mmol/L (3.5-5.1)
[2016-08-03 07:15] LABS: Albumin 2.3 g/dL (3.4-5.0); BUN/Creatinine Ratio 27.4; Bilirubin, Total 0.3 mg/dL (0.2-1.0); Calcium 8.8 mg/dL (8.5-10.1); Magnesium 2.1 mg/dL (1.6-2.6); Total Protein 7.9 g/dL (6.4-8.2)
[2016-08-03 08:00] VITALS: BP 117/72
[2016-08-03] MEDS: PRO-STAT 64 30ML PO SCH ×3 (08:00→17:18)
[2016-08-03] MEDS: CEFTRIAXONE SODIUM 2 GM in D5W 5% 50 ML IV SCH (08:55)
[2016-08-03 12:03] VITALS: BP 111/69
[2016-08-03] MEDS: FLUCONAZOLE 200MG/100ML 100 ML IV SCH (14:01)
[2016-08-03 15:12] LABS: Legionella Species Culture Final report (.)
[2016-08-03 21:43] VITALS: BP 125/77
[2016-08-04] MEDS: IPRATROPIUM BROM 0.5 MG/2.5ML INH SOL NEB SCH ×4 (00:30→18:00)
[2016-08-04] MEDS: ALBUTEROL SULF 2.5 MG/0.5ML(0.5%) NEB SOLN NEB SCH ×4 (00:30→18:00)
[2016-08-04] MEDS: ACETYLCYSTEINE 10 %(100MG/ML) SOL 4ML NEB SCH ×4 (00:30→18:00)
[2016-08-04] MEDS: ACCU-CHEK COMFORT CURVE STRIP VI SCH ×5 (01:42→23:46)
[2016-08-04] MEDS: InsuLIN REG 1unit/0.01ml Soln (100units/ml) SC SCH ×6 (01:43→23:40)
[2016-08-04] MEDS: SODIUM CHLOR 0.9% PF (SALINE LOCK) 10ML VIAL IV SCH ×3 (01:43→21:40)
[2016-08-04 05:30] VITALS: BP 114/69
[2016-08-04 06:13] LABS: Basophils # (auto) 0 uL; Basophils % (auto) 0.5 % (0.0-2.0); Eosinophils # (auto) 0.6 uL; Hemoglobin 10.1 g/dL (13.5-17.5); Lymphocytes # (auto) 1.3 uL; Lymphocytes % (auto) 16.6 % (10.0-50.0); Mean Corpuscular Hemoglobin 30.1 pg (28.0-32.0); Mean Corpuscular Hgb Conc. 32.5 g/dL (32.0-36.0); Mean Corpuscular Volume 92.8 fL (80.0-100.0); Mean Platelet Volume 9.9 fL (7.4-10.4); Monocytes # (auto) 0.6 uL; Monocytes % (auto) 7.3 % (0.0-12.0); Neutrophils # (auto) 5.1 uL; Neutrophils % (auto) 67.6 % (37.0-80.0); Platelet Count (auto) 258 10^3/uL (140-450); Red Cell Distribution Width 14.3 % (11.6-16.0); White Blood Cell 7.6 10^3/uL (4.4-10.8)
[2016-08-04 06:22] LABS: INR 1.15 (0.9-1.15); Prothrombin Time 11.8 sec (9.37-12.3)
[2016-08-04 06:44] LABS: BUN/Creatinine Ratio 20.3; Calcium 8.5 mg/dL (8.5-10.1); Magnesium 2.1 mg/dL (1.6-2.6)
[2016-08-04] MEDS: PRO-STAT 64 30ML PO SCH ×3 (08:00→18:23)
[2016-08-04 09:05] VITALS: BP 116/74
[2016-08-04] MEDS: CEFTRIAXONE SODIUM 2 GM in D5W 5% 50 ML IV SCH (10:13)
[2016-08-04] MEDS: Boost Glucose Control 8 Ounces PO SCH ×3 (10:14→20:22)
[2016-08-04 13:00] VITALS: BP 120/78
[2016-08-04] MEDS: FLUCONAZOLE 200MG/100ML 100 ML IV SCH (13:48)
[2016-08-04] MEDS ORDERED: CEFTRIAXONE SODIUM 2 GM in D5W 5% 50 ML IV ONE (15:15)
[2016-08-04 16:58] VITALS: BP 118/78
[2016-08-04 22:00] VITALS: BP 110/76
[2016-08-04] MEDS ORDERED: SODIUM CHLOR 0.9% PF (SALINE LOCK) 10ML VIAL IV SCH (22:00)
[2016-08-05] MEDS: IPRATROPIUM BROM 0.5 MG/2.5ML INH SOL NEB SCH ×3 (01:07→19:09)
[2016-08-05] MEDS: ALBUTEROL SULF 2.5 MG/0.5ML(0.5%) NEB SOLN NEB SCH ×3 (01:09→19:09)
[2016-08-05] MEDS: ACETYLCYSTEINE 10 %(100MG/ML) SOL 4ML NEB SCH ×2 (01:09→19:09)
[2016-08-05 05:13] VITALS: BP 115/79
[2016-08-05] MEDS: ACCU-CHEK COMFORT CURVE STRIP VI SCH ×3 (05:46→18:00)
[2016-08-05] MEDS: InsuLIN REG 1unit/0.01ml Soln (100units/ml) SC SCH ×3 (06:05→18:00)
[2016-08-05 06:12] LABS: Basophils # (auto) 0.1 uL; Basophils % (auto) 0.7 % (0.0-2.0); Eosinophils # (auto) 0.4 uL; Eosinophils % (auto) 5.2 % (0.0-7.0); Hematocrit 31.4 % (41.0-53.0); Hemoglobin 10.2 g/dL (13.5-17.5); Lymphocytes # (auto) 1.3 uL; Lymphocytes % (auto) 15.9 % (10.0-50.0); Mean Corpuscular Hgb Conc. 32.3 g/dL (32.0-36.0); Mean Corpuscular Volume 92.6 fL (80.0-100.0); Mean Platelet Volume 9.3 fL (7.4-10.4); Monocytes # (auto) 0.6 uL; Neutrophils # (auto) 5.8 uL; Neutrophils % (auto) 71.2 % (37.0-80.0); Platelet Count (auto) 256 10^3/uL (140-450); Red Cell Distribution Width 14.3 % (11.6-16.0); White Blood Cell 8.1 10^3/uL (4.4-10.8)
[2016-08-05 06:26] LABS: Prothrombin Time 12.2 sec (9.37-12.3)
[2016-08-05 06:34] LABS: INR 1.18 (0.9-1.15)
[2016-08-05 06:50] LABS: BUN/Creatinine Ratio 22.6; Calcium 8.9 mg/dL (8.5-10.1); Magnesium 2.1 mg/dL (1.6-2.6); Potassium 3.8 mmol/L (3.5-5.1)
[2016-08-05] MEDS: PRO-STAT 64 30ML PO SCH ×3 (08:00→18:00)
[2016-08-05 09:00] VITALS: BP 117/65
[2016-08-05] MEDS ORDERED: CEFTRIAXONE SODIUM 2 GM in D5W 5% 50 ML IV SCH (10:00)
[2016-08-05] MEDS: Boost Glucose Control 8 Ounces PO SCH ×3 (10:00→18:44)
[2016-08-05] MEDS: SODIUM CHLOR 0.9% PF (SALINE LOCK) 10ML VIAL IV SCH ×2 (10:30→21:37)
[2016-08-05] MEDS: CEFTRIAXONE SODIUM 2 GM in D5W 5% 50 ML IV SCH (10:39)
[2016-08-05 12:46] VITALS: BP 127/85
[2016-08-05] MEDS: FLUCONAZOLE 200MG/100ML 100 ML IV SCH (14:00)
[2016-08-05 16:53] VITALS: BP 127/85
[2016-08-05 17:00] VITALS: BP 128/77
[2016-08-05 22:00] VITALS: BP 111/77
[2016-08-06] MEDS: ACCU-CHEK COMFORT CURVE STRIP VI SCH ×4 (00:14→18:00)
[2016-08-06] MEDS: InsuLIN REG 1unit/0.01ml Soln (100units/ml) SC SCH ×4 (00:15→18:00)
[2016-08-06] MEDS: ALBUTEROL SULF 2.5 MG/0.5ML(0.5%) NEB SOLN NEB SCH ×3 (00:33→11:41)
[2016-08-06] MEDS: IPRATROPIUM BROM 0.5 MG/2.5ML INH SOL NEB SCH ×3 (00:33→11:41)
[2016-08-06] MEDS: ACETYLCYSTEINE 10 %(100MG/ML) SOL 4ML NEB SCH ×3 (00:33→11:41)
[2016-08-06 01:44] VITALS: BP 111/77
[2016-08-06 05:00] VITALS: BP 113/75
[2016-08-06 09:00] VITALS: BP 118/82
[2016-08-06] MEDS: CEFTRIAXONE SODIUM 2 GM in D5W 5% 50 ML IV SCH (10:11)
[2016-08-06] MEDS: PRO-STAT 64 30ML PO SCH ×3 (10:12→18:00)
[2016-08-06] MEDS: Boost Glucose Control 8 Ounces PO SCH ×2 (10:13→15:00)
[2016-08-06] MEDS: SODIUM CHLOR 0.9% PF (SALINE LOCK) 10ML VIAL IV SCH (10:13)
[2016-08-06 12:55] VITALS: BP 119/74
[2016-08-06] MEDS: FLUCONAZOLE 200MG/100ML 100 ML IV SCH (14:46)
[2016-08-06 16:52] VITALS: BP 120/79
== END 2016-08-06 18:46 | disposition home health service (06) | DRG 710 ==
LOC: ER 18:58 → TELE 18:59 → ICU WEST 07-08 20:45 → TELE-WESTW 07-11 17:08 → DOU IN ICU 07-18 15:51 → ICU WEST 07-19 15:01 → DOU IN ICU 07-27 20:23 → TELE-WESTW 07-31 15:40
PROVIDERS: ADMIT Family Medicine; ATTEND Internal Medicine
PROC: 0W9930Z Drainage of Right Pleural Cavity with Drainage Device, Percutaneous Approach (ICD-10-PCS; principal; 2016-07-08)
PROC: 0BDN0ZZ Extraction of Right Pleura, Open Approach (ICD-10-PCS; 2016-07-18)
PROC: 0B9K00Z Drainage of Right Lung with Drainage Device, Open Approach (ICD-10-PCS; 2016-07-18)
PROC: 5A1955Z Respiratory Ventilation, Greater than 96 Consecutive Hours (ICD-10-PCS; 2016-07-18)
PROC: 0BBC3ZX Excision of Right Upper Lung Lobe, Percutaneous Approach, Diagnostic (ICD-10-PCS; 2016-07-18)
PROC: 0BH17EZ Insertion of Endotracheal Airway into Trachea, Via Natural or Artificial Opening (ICD-10-PCS; 2016-07-18)
PROC: 05HD33Z Insertion of Infusion Device into Right Cephalic Vein, Percutaneous Approach (ICD-10-PCS; 2016-07-18)
PROC: 0B9 Respiratory System, Drainage (ICD-10-PCS; 2016-07-18)
PROC: 0B9F3ZX Drainage of Right Lower Lung Lobe, Percutaneous Approach, Diagnostic (ICD-10-PCS; 2016-07-18)
PROC: 0B9D3ZX Drainage of Right Middle Lung Lobe, Percutaneous Approach, Diagnostic (ICD-10-PCS; 2016-07-18)
DX: A41.9 Sepsis, unspecified organism (principal); J96.01 Acute respiratory failure with hypoxia; R65.21 Severe sepsis with septic shock; G92 Toxic encephalopathy; E43 Unspecified severe protein-calorie malnutrition; J90 Pleural effusion, not elsewhere classified; J85.2 Abscess of lung without pneumonia; E13.10 Other specified diabetes mellitus with ketoacidosis without coma; E87.2 Acidosis; K76.0 Fatty (change of) liver, not elsewhere classified; E86.0 Dehydration; I10 Essential (primary) hypertension; Z88.5 Allergy status to narcotic agent; R91.1 Solitary pulmonary nodule; Z82.49 Family history of ischemic heart disease and other diseases of the circulatory system; Z83.3 Family history of diabetes mellitus; E88.09 Other disorders of plasma-protein metabolism, not elsewhere classified; Z68.23 Body mass index [BMI] 23.0-23.9, adult; E11.65 Type 2 diabetes mellitus with hyperglycemia; E46 Unspecified protein-calorie malnutrition; Z68.24 Body mass index [BMI] 24.0-24.9, adult; G90.2 Horner's syndrome; B96.1 Klebsiella pneumoniae [K. pneumoniae] as the cause of diseases classified elsewhere; Z87.891 Personal history of nicotine dependence; H57.02 Anisocoria
CPT/HCPCS: 36415; 36569; 36600; 51702; 70450; 70498; 71010; 71020; 71250; 71260; 76604; 76942; 80048; 80053; 80061; 80202; 81001; 82805; 82962; 83036; 83605; 83615; 83735; 83880; 83986; 84100; 84155; 84484; 85007; 85025; 85027; 85379; 85610; 85730; 86850; 86900; 86901; 87040; 87070; 87075; 87077; 87081; 87086; 87186; 87205; 88307; 88341; 89051; 93005; 94002; 94003; 94640; 94660; 96365; 96372; 96375; 97110; 97116; 97530; 99291; A4223; C1729; C9113; G0434; J0171; J0330; J0690; J0696; J1100; J1450; J1815; J2250; J2543; J2704; J3010; J3490; J7060; Q9967

== ENCOUNTER 2021-03-10 11:16 | Emergency (ER) | payer BC, MEDICAID ==
[~2021-03-10] VITALS: Ht 172.7 cm; Wt 83.5 kg
[~2021-03-10 11:16] MED LIST: AZIT250T9 PO; METF-371 PO
[2021-03-10 11:18] VITALS: BP 144/95
[2021-03-10] MEDS ORDERED: cefTRIAXone SOD 1,000 MG VL IM ONE (14:00)
== END 2021-03-10 14:12 | disposition home or self-care (01) ==
LOC: ER 11:16
DX: J20.9 Acute bronchitis, unspecified (principal); J02.9 Acute pharyngitis, unspecified; I10 Essential (primary) hypertension; E11.9 Type 2 diabetes mellitus without complications
CPT/HCPCS: 36415; 71045; 96372; 99283; J0696

== ENCOUNTER 2021-11-25 12:00 | Emergency (ER) | payer BC, OTHER ==
[~2021-11-25] VITALS: Ht 172.7 cm; Wt 81.6 kg
[2021-11-25 12:01] VITALS: BP 117/76
[2021-11-25] MEDS ORDERED: KETOROLAC TROMETH 60MG/2ML VIAL IM ONE (13:30)
[2021-11-25] MEDS ORDERED: TRAM-297 PO (16:04)
== END 2021-11-25 16:15 | disposition home or self-care (01) ==
LOC: EDBD → ER 12:00
DX: M51.17 Intervertebral disc disorders with radiculopathy, lumbosacral region (principal); E11.9 Type 2 diabetes mellitus without complications; I10 Essential (primary) hypertension; Z88.6 Allergy status to analgesic agent
CPT/HCPCS: 72131; 96372; 99284; J1885

== ENCOUNTER 2021-11-27 11:41 | Emergency (ER) | payer BC, OTHER ==
[~2021-11-27] VITALS: Ht 167.6 cm; Wt 72.6 kg
[~2021-11-27 11:41] MED LIST changes: +TRAM-297 PO
[2021-11-27] MEDS ORDERED: SODIUM CHLORIDE 0.9% 1,000 ML IVB ONE (12:00)
[2021-11-27 13:12] LABS: Albumin 2.1 g/dL (3.4-5.0); Anion Gap 18 (5-15); Blood Urea Nitrogen 65 mg/dL (7-18); Calcium 10.1 mg/dL (8.5-10.1); Carbon Dioxide 15 mmol/L (21-32); Chloride 111 mmol/L (98-107); Glucose 207 mg/dL (74-106); Magnesium 3.5 mg/dL (1.6-2.6); Potassium 3.8 mmol/L (3.5-5.1); Sodium 144 mmol/L (136-145)
[2021-11-27 13:14] LABS: Lactic Acid w/Reflex 3.6 mmol/L (0.4-2.0)
[2021-11-27 13:15] LABS: Alanine Aminotransferase 60 U/L (16-61); Aspartate Aminotransferase 69 U/L (15-37); BUN/Creatinine Ratio 48.1; Blood Alcohol < 3.0 mg/dL (0-5); GFR African American 68 mL/min; GFR Non-African American 56 mL/min
[2021-11-27 13:17] LABS: Alkaline Phosphatase 79 U/L (45-117); Bilirubin, Total 1.4 mg/dL (0.2-1.0); Total Protein 6.6 g/dL (6.4-8.2)
[2021-11-27 13:36] LABS: Urine Bacteria NONE SEEN /hpf (None Seen); Urine Blood 3+ /uL (Negative); Urine Mucus FEW (None Seen); Urine Specific Gravity 1.026 (1.001-1.035); Urine WBC 1 /hpf (0 - 3)
[2021-11-27] MEDS ORDERED: CEFEPIME 2 GM in SODIUM CHL 0.9% 50 ML IV ONE (14:00)
[2021-11-27] MEDS ORDERED: VANCOMYCIN 1GM/250ML 250 ML IV ONE (14:00)
[2021-11-27 14:15] LABS: Hematocrit 48.6 % (41.0-53.0); Hemoglobin 16.3 g/dL (13.5-17.5); Mean Corpuscular Hemoglobin 31.8 pg (28.0-32.0); Mean Corpuscular Hgb Conc. 33.6 g/dL (32.0-36.0); Mean Corpuscular Volume 94.6 fL (80.0-100.0); Red Blood Cells 5.14 10^6/uL (4.5-5.90); Red Cell Distribution Width 14.6 % (11.8-14.3); White Blood Cell 8.3 10^3/uL (4.4-10.8)
[2021-11-27] MEDS ORDERED: SODIUM CHLORIDE 0.9% 250 ML IV ONE (14:15)
[2021-11-27] MEDS ORDERED: IOHEXOL 350 MG/ML 100ML IJ ONE (15:00)
[2021-11-27 15:05] LABS: Basophils % (manual) 0 (0.0-2.0); Blast Cells 0; Eosinophils % (manual) 0 (0-7); Promyelocytes % 0; Reactive Lymphocytes 0
[2021-11-27 15:14] LABS: Band Neutrophils % (manual) 17; Lymphocytes % (manual) 20 (10.0-50.0); Metamyelocytes % 2; Monocytes % (manual) 12 (0-12); Myelocytes % 1
[2021-11-27 15:29] LABS: BUN/Creatinine Ratio 48.5; Calcium 9.8 mg/dL (8.5-10.1); Potassium 3.9 mmol/L (3.5-5.1)
[2021-11-27] MEDS ORDERED: SODIUM CHLORIDE 0.9% 1,000 ML IV ONE (16:30)
[2021-11-27] MEDS ORDERED: CLINDAMYCIN 600MG IV 50 ML IV ONE (16:30)
[2021-11-27] MEDS ORDERED: HYDROCORTISONE SOD SUCC 100 MG/2ML INJ VIAL IV ONE (17:00)
[2021-11-27] MEDS ORDERED: NOREPINEPHRINE 8 MG/250ML KIT 250 ML IV ONE (17:02)
[2021-11-27] MEDS ORDERED: SUCCINYLCHOLINE CHLORIDE 20 MG/ML 10ML VIAL IV ONE ×2 (17:02→17:08)
[2021-11-27] MEDS ORDERED: KETAMINE HCL 10 ML ONE (17:04)
[2021-11-27] MEDS ORDERED: KETAMINE 50mg/ML 10ml Vial (500mg/10ml) IV ONE (17:07)
[2021-11-27] MEDS ORDERED: MIDAZOLAM DRIP 50 mg/50mL 50 ML IV ONE (17:09)
[2021-11-27] MEDS ORDERED: MIDAZOLAM DRIP 50 mg/50mL 50 ML IV SCH (17:13)
[2021-11-27 17:32] VITALS: BP 65/32
[2021-11-27] MEDS ORDERED: NOREPINEPHRINE 8 MG/250ML KIT 250 ML IV SCH (17:45)
== END 2021-11-27 17:52 | disposition short-term general hospital (02) ==
LOC: EDBD 11:41 → ER 11:41
DX: J96.90 Respiratory failure, unspecified, unspecified whether with hypoxia or hypercapnia (principal); E11.10 Type 2 diabetes mellitus with ketoacidosis without coma; R65.21 Severe sepsis with septic shock; M72.6 Necrotizing fasciitis; I10 Essential (primary) hypertension; E11.9 Type 2 diabetes mellitus without complications; Z79.2 Long term (current) use of antibiotics; Z79.899 Other long term (current) drug therapy; Z88.5 Allergy status to narcotic agent; Z20.822 Contact with and (suspected) exposure to COVID-19
CPT/HCPCS: 31500; 36415; 36600; 70450; 71045; 71275; 80048; 80053; 80320; 81001; 82010; 82140; 82805; 82962; 83605; 83735; 84443; 84484; 85007; 85027; 85379; 87040; 87077; 87186; 87426; 93005; 96361; 96365; 96366; 96367; 99291; J0330; J0692; J2250; J3370; Q9967